=== PATIENT | male | born 1950 | race African-American/Black ===

== ENCOUNTER 2020-10-14 11:25 | Inpatient (IN) | payer OTHER ==
[2020-10-14 11:58] VITALS: BMI 25.7
[2020-10-14] MEDS ORDERED: ONDANSETRON 4 MG/2 ML VIAL IVPUSH ONE (12:56)
[2020-10-14] MEDS ORDERED: LACTATED RINGERS SOLUTION 1000 ML INFUS.BAG IV ONE (12:56)
[2020-10-14] MEDS ORDERED: ONDANSETRON 4 MG/2 ML VIAL ONE (14:03)
[2020-10-14 14:05] LABS: BASO % 0.2 % (0-2.0); HEMATOCRIT 37.1 % (35.4-49); HEMOGLOBIN 12.1 GM/dL (11.7-16.9); LYMPH % 5.8 % (8-40); MCH 27.2 pg (25.7-33.7); MCHC 32.5 g/dl (32.0-35.9); MEAN CELL VOLUME 83.7 fl (80-96); MONO % 3.9 % (3.8-10.2); NEUT % 90.1 % (42.8-82.8); PLATELET COUNT 305 K/MM3 (134-434); RBC 4.43 M/mm3 (4.00-5.60); RDW 16.7 % (11.9-15.9); WHITE BLOOD COUNT 13.9 K/mm3 (4.0-10.0)
[2020-10-14 14:23] LABS: CHLORIDE 97 mmol/L (98-107); POTASSIUM 4.4 mmol/L (3.5-5.1); SODIUM 129 mmol/L (136-145)
[2020-10-14 14:25] LABS: CALCIUM 10.1 mg/dL (8.5-10.1)
[2020-10-14 14:26] LABS: ALBUMIN 3.3 g/dl (3.4-5.0); ANION GAP 11 MMOL/L (8-16); BLOOD UREA NITROGEN 17.5 mg/dL (7-18); CO2 21 mmol/L (21-32); GLUCOSE,RANDOM 123 mg/dL (74-106); LIPASE 57 U/L (73-393); MAGNESIUM 2.1 mg/dL (1.8-2.4)
[2020-10-14 14:29] LABS: CREATININE 1.2 mg/dL (0.55-1.3); SGOT/AST 37 U/L (15-37); SGPT/ALT 48 U/L (13-61)
[2020-10-14 14:30] LABS: BILIRUBIN,TOTAL 0.5 mg/dL (0.2-1); TOT PROT 9.2 g/dl (6.4-8.2)
[2020-10-14 14:32] LABS: ALK PHOS 126 U/L (45-117)
[2020-10-14 15:25] LABS: EPI CELLS 5 /uL (0-25.1); HYALINE CASTS 2 /uL (0-3.1); PH,URINE 5.5 (5.0-8.0); URINE APPEARANCE CLOUDY; URINE BACTERIA >9,000 /uL (0-1359); URINE BILIRUBIN NEGATIVE (NEGATIVE); URINE COLOR YELLOW; URINE GLUCOSE (UA) NEGATIVE (NEGATIVE); URINE KETONE NEGATIVE (NEGATIVE); URINE LEUK ESTERASE 3+ (NEGATIVE); URINE NITRITE NEGATIVE (NEGATIVE); URINE PROTEIN 1+ (NEGATIVE); URINE RBC 50 /uL (0-23.9); URINE UROBILINOGEN 0.2 mg/dL (0.2-1.0); URINE WBC 2085 /uL (0-25.8)
[2020-10-14] MEDS ORDERED: PIPERACILLIN/TAZOB 3.375 GM 3.375 GM in DEXTROSE 5%-WATER - 50 ML IVPB ONE (18:46)
[2020-10-15] MEDS ORDERED: MAG HYDROX/AL HYDROX/SIMETH 30 ML UNIT-DOSE CUP PO PRN (01:26)
[2020-10-15] MEDS ORDERED: SODIUM CHLORIDE 1,000 ML IV SCH (01:30)
[2020-10-15] MEDS: BETHANECHOL CHLORIDE 25 MG TABLET PO SCH ×2 (06:02→13:05)
[2020-10-15] MEDS: INSULIN SLIDING SCALE (NOVOLOG) 1 VIAL SQ SCH ×3 (06:48→16:40)
[2020-10-15] MEDS ORDERED: ACETAMINOPHEN 325 MG TABLET (FP) PO PRN (07:01)
[2020-10-15] MEDS: TAMSULOSIN HCL 0.4 MG CAP PO SCH (10:00)
[2020-10-15] MEDS: MULTIVITAMINS (DAILY MVI) TABLET (FP) PO SCH (10:00)
[2020-10-15] MEDS: CYANOCOBALAMIN 1,000 MCG TABLET (FP) PO SCH (10:00)
[2020-10-15] MEDS: FLUoxetine HCL 20 MG CAPSULE PO SCH (10:00)
[2020-10-15] MEDS: APIXABAN 5 MG TABLET PO SCH (10:00)
[2020-10-15] MEDS ORDERED: PSYLLIUM 5.85 GM PACKET PO SCH (10:00)
[2020-10-15] MEDS: SOLIFENACIN SUCCINATE 5 MG TAB PO SCH (10:00)
[2020-10-15] MEDS: ASCORBIC ACID 500 MG TABLET (FP) PO SCH (10:00)
[2020-10-15] MEDS: ERTAPENEM SODIUM 1 GM in SODIUM CHLORIDE 50 ML IVPB SCH (13:02)
[2020-10-15 15:41] LABS: BASO % 0.5 % (0-2.0); EOS % 0.1 % (0-4.5); HEMATOCRIT 37.9 % (35.4-49); HEMOGLOBIN 12.4 GM/dL (11.7-16.9); LYMPH % 9.2 % (8-40); MCH 27.8 pg (25.7-33.7); MCHC 32.7 g/dl (32.0-35.9); MEAN CELL VOLUME 85.2 fl (80-96); MEAN PLT VOLUME 8.5 fl (7.5-11.1); MONO % 4.6 % (3.8-10.2); NEUT % 85.6 % (42.8-82.8); PLATELET COUNT 287 K/MM3 (134-434); RBC 4.45 M/mm3 (4.00-5.60); RDW 16.3 % (11.9-15.9); WHITE BLOOD COUNT 13.9 K/mm3 (4.0-10.0)
[2020-10-15 15:47] LABS: POTASSIUM 4.2 mmol/L (3.5-5.1)
[2020-10-15 15:49] LABS: CALCIUM 10.5 mg/dL (8.5-10.1)
[2020-10-15 15:50] LABS: ALBUMIN 3.3 g/dl (3.4-5.0); BLOOD UREA NITROGEN 27.4 mg/dL (7-18); MAGNESIUM 2.2 mg/dL (1.8-2.4)
[2020-10-15 15:53] LABS: CREATININE 1.3 mg/dL (0.55-1.3)
[2020-10-15 15:54] LABS: BILIRUBIN,TOTAL 0.2 mg/dL (0.2-1); TOT PROT 8.9 g/dl (6.4-8.2)
[2020-10-15] MEDS: ATORVASTATIN CA 10 MG TABLET (FP) PO SCH (23:00)
[2020-10-15] MEDS: HEPARIN NA (PORCINE) 5,000 UNITS/ML 1ML VIAL SQ SCH (23:04)
[2020-10-16] MEDS: SODIUM CHLORIDE 1,000 ML IV SCH ×2 (00:17→10:06)
[2020-10-16] MEDS: LYTES/YERBA SANTA 60 ML SPRAY MM SCH ×4 (00:48→10:06)
[2020-10-16] MEDS: INSULIN SLIDING SCALE (NOVOLOG) 1 VIAL SQ SCH ×2 (06:08→11:38)
[2020-10-16] MEDS: HEPARIN NA (PORCINE) 5,000 UNITS/ML 1ML VIAL SQ SCH (06:09)
[2020-10-16] MEDS ORDERED: DEXTROSE 50%-WATER - 25 GM/50 ML VIAL IVPUSH ONE (06:36)
[2020-10-16] MEDS ORDERED: DEXTROSE 50%-WATER 25 GM/50 ML DISP.SYRIN ONE (07:14)
[2020-10-16] MEDS: FLUoxetine HCL 20 MG CAPSULE PO SCH (09:46)
[2020-10-16] MEDS: MULTIVITAMINS (DAILY MVI) TABLET (FP) PO SCH (09:46)
[2020-10-16] MEDS: CYANOCOBALAMIN 1,000 MCG TABLET (FP) PO SCH (09:46)
[2020-10-16] MEDS: SOLIFENACIN SUCCINATE 5 MG TAB PO SCH (09:46)
[2020-10-16] MEDS: ASCORBIC ACID 500 MG TABLET (FP) PO SCH (09:46)
[2020-10-16] MEDS: ERTAPENEM SODIUM 1 GM in SODIUM CHLORIDE 50 ML IVPB SCH (10:06)
[2020-10-16 11:07] LABS: BASO % 0.3 % (0-2.0); EOS % 0.2 % (0-4.5); HEMOGLOBIN 11.8 GM/dL (11.7-16.9); LYMPH % 15.9 % (8-40); MCHC 31.2 g/dl (32.0-35.9); MEAN CELL VOLUME 86.5 fl (80-96); MEAN PLT VOLUME 8.5 fl (7.5-11.1); MONO % 6.9 % (3.8-10.2); NEUT % 76.7 % (42.8-82.8); PLATELET COUNT 285 K/MM3 (134-434); RBC 4.39 M/mm3 (4.00-5.60); RDW 16.5 % (11.9-15.9); WHITE BLOOD COUNT 8.2 K/mm3 (4.0-10.0)
[2020-10-16] MEDS ORDERED: PANTOPRAZOLE SODIUM 40 MG in SODIUM CHLORIDE 100 ML IVPB SCH ×2 (11:15→11:25)
[2020-10-16 11:37] LABS: MAGNESIUM 2.4 mg/dL (1.8-2.4)
[2020-10-16 11:41] LABS: PHOSPHOROUS 3.3 mg/dL (2.5-4.9)
[2020-10-16] MEDS ORDERED: PANTOPRAZOLE SODIUM 40 MG VIAL ONE (12:04)
[2020-10-16] MEDS ORDERED: SODIUM CHLORIDE 100 ML IVPB ONE (12:04)
[2020-10-16] MEDS: D5-NS + 40 MEQ KCL - 40 MEQ/1,000 ML INFUS.BAG IV SCH (12:11)
[2020-10-16] MEDS ORDERED: BACITRACIN 15 GM TUBE TOPICAL OINTMENT TP SCH (12:15)
[2020-10-16] MEDS ORDERED: PT OWN MED DRAWER 7, Y5N ONE ×2 (14:20→22:10)
[2020-10-16 14:30] LABS: POTASSIUM 4.1 mmol/L (3.5-5.1)
[2020-10-16] MEDS: BETHANECHOL CHLORIDE 25 MG TABLET PO SCH ×2 (14:30→22:58)
[2020-10-16] MEDS: BACITRACIN 15 GM TUBE TOPICAL OINTMENT TP SCH ×2 (14:30→22:57)
[2020-10-16 14:32] LABS: CALCIUM 10.1 mg/dL (8.5-10.1)
[2020-10-16 14:33] LABS: ALBUMIN 3.1 g/dl (3.4-5.0); BLOOD UREA NITROGEN 30.8 mg/dL (7-18)
[2020-10-16 14:36] LABS: CREATININE 1.3 mg/dL (0.55-1.3)
[2020-10-16 14:37] LABS: BILIRUBIN,TOTAL 0.2 mg/dL (0.2-1); TOT PROT 8.4 g/dl (6.4-8.2)
[2020-10-16] MEDS ORDERED: MEROPENEM 1 GM VIAL (RESTRICTED TO ID) IVPB ONE (17:15)
[2020-10-16] MEDS ORDERED: DEXTROSE 5%-WATER 100 ML IVPB ONE (17:15)
[2020-10-16] MEDS: MEROPENEM 1 GM in DEXTROSE 5%-WATER 100 ML IVPB SCH (17:45)
[2020-10-16] MEDS ORDERED: HEPARIN NA (PORCINE) 5,000 UNITS/ML 1ML VIAL SQ SCH (22:00)
[2020-10-16] MEDS: ATORVASTATIN CA 10 MG TABLET (FP) PO SCH (22:57)
[2020-10-16] MEDS: APIXABAN 5 MG TABLET PO SCH (22:57)
[2020-10-17] MEDS ORDERED: MEROPENEM 1 GM VIAL (RESTRICTED TO ID) IVPB ONE ×3 (02:26→17:21)
[2020-10-17] MEDS ORDERED: DEXTROSE 5%-WATER 100 ML IVPB ONE ×3 (02:26→17:21)
[2020-10-17] MEDS: MEROPENEM 1 GM in DEXTROSE 5%-WATER 100 ML IVPB SCH ×3 (02:45→17:29)
[2020-10-17] MEDS: BETHANECHOL CHLORIDE 25 MG TABLET PO SCH ×3 (06:45→22:03)
[2020-10-17 09:00] LABS: BASO % 0.5 % (0-2.0); EOS % 1.1 % (0-4.5); HEMATOCRIT 37.7 % (35.4-49); HEMOGLOBIN 11.7 GM/dL (11.7-16.9); LYMPH % 23.7 % (8-40); MCH 27.5 pg (25.7-33.7); MCHC 30.9 g/dl (32.0-35.9); MEAN CELL VOLUME 88.9 fl (80-96); MEAN PLT VOLUME 7.7 fl (7.5-11.1); MONO % 6.8 % (3.8-10.2); NEUT % 67.9 % (42.8-82.8); PLATELET COUNT 206 K/MM3 (134-434); RBC 4.24 M/mm3 (4.00-5.60); RDW 16.2 % (11.9-15.9); WHITE BLOOD COUNT 5.4 K/mm3 (4.0-10.0)
[2020-10-17 09:25] LABS: POTASSIUM 4.5 mmol/L (3.5-5.1)
[2020-10-17 09:27] LABS: CALCIUM 9.2 mg/dL (8.5-10.1)
[2020-10-17 09:29] LABS: BLOOD UREA NITROGEN 17.6 mg/dL (7-18)
[2020-10-17 09:31] LABS: CREATININE 0.9 mg/dL (0.55-1.3)
[2020-10-17 09:32] LABS: ALBUMIN 2.6 g/dl (3.4-5.0)
[2020-10-17 09:33] LABS: BILIRUBIN,TOTAL 0.7 mg/dL (0.2-1); TOT PROT 7.6 g/dl (6.4-8.2)
[2020-10-17] MEDS: FLUoxetine HCL 20 MG CAPSULE PO SCH (11:11)
[2020-10-17] MEDS: TAMSULOSIN HCL 0.4 MG CAP PO SCH (11:11)
[2020-10-17] MEDS: SOLIFENACIN SUCCINATE 5 MG TAB PO SCH (11:11)
[2020-10-17] MEDS: APIXABAN 5 MG TABLET PO SCH ×2 (11:12→22:03)
[2020-10-17] MEDS: BACITRACIN 15 GM TUBE TOPICAL OINTMENT TP SCH ×2 (11:12→22:02)
[2020-10-17] MEDS: PANTOPRAZOLE SODIUM 40 MG VIAL IVPUSH SCH (11:13)
[2020-10-17] MEDS: D5-NS + 40 MEQ KCL - 40 MEQ/1,000 ML INFUS.BAG IV SCH (12:01)
[2020-10-17] MEDS ORDERED: PT OWN MED DRAWER 7, Y5N ONE ×2 (13:05→21:36)
[2020-10-17] MEDS: ATORVASTATIN CA 10 MG TABLET (FP) PO SCH (22:03)
[2020-10-18] MEDS ORDERED: MEROPENEM 1 GM VIAL (RESTRICTED TO ID) IVPB ONE ×3 (02:51→16:53)
[2020-10-18] MEDS: MEROPENEM 1 GM in DEXTROSE 5%-WATER 100 ML IVPB SCH ×3 (02:57→17:09)
[2020-10-18] MEDS ORDERED: PT OWN MED DRAWER 7, Y5N ONE (05:59)
[2020-10-18] MEDS: BETHANECHOL CHLORIDE 25 MG TABLET PO SCH ×2 (07:00→14:42)
[2020-10-18 08:25] LABS: BASO % 0.7 % (0-2.0); EOS % 2.1 % (0-4.5); HEMATOCRIT 33.1 % (35.4-49); HEMOGLOBIN 10.8 GM/dL (11.7-16.9); LYMPH % 30.9 % (8-40); MCH 27.8 pg (25.7-33.7); MCHC 32.6 g/dl (32.0-35.9); MEAN CELL VOLUME 85.1 fl (80-96); MEAN PLT VOLUME 8.3 fl (7.5-11.1); MONO % 9.7 % (3.8-10.2); NEUT % 56.6 % (42.8-82.8); PLATELET COUNT 247 K/MM3 (134-434); RBC 3.89 M/mm3 (4.00-5.60); RDW 16.1 % (11.9-15.9); WHITE BLOOD COUNT 5.2 K/mm3 (4.0-10.0)
[2020-10-18 08:51] LABS: POTASSIUM 4.2 mmol/L (3.5-5.1)
[2020-10-18] MEDS ORDERED: DEXTROSE 5%-WATER 100 ML IVPB ONE ×2 (09:27→16:54)
[2020-10-18 09:32] LABS: BLOOD UREA NITROGEN 9.8 mg/dL (7-18); CALCIUM 9.1 mg/dL (8.5-10.1)
[2020-10-18 09:33] LABS: ALBUMIN 2.5 g/dl (3.4-5.0)
[2020-10-18 09:37] LABS: BILIRUBIN,TOTAL 0.4 mg/dL (0.2-1); TOT PROT 7.1 g/dl (6.4-8.2)
[2020-10-18] MEDS: SOLIFENACIN SUCCINATE 5 MG TAB PO SCH (10:13)
[2020-10-18] MEDS: BACITRACIN 15 GM TUBE TOPICAL OINTMENT TP SCH (10:13)
[2020-10-18] MEDS: TAMSULOSIN HCL 0.4 MG CAP PO SCH (10:13)
[2020-10-18] MEDS: FLUoxetine HCL 20 MG CAPSULE PO SCH (10:13)
[2020-10-18] MEDS: PANTOPRAZOLE SODIUM 40 MG VIAL IVPUSH SCH (10:13)
[2020-10-18] MEDS: APIXABAN 5 MG TABLET PO SCH (10:15)
[2020-10-18 13:52] VITALS: BP 101/62; PULSE 82; TEMP 98.5
== END 2020-10-18 19:49 | DRG 389 ==
LOC: JER 11:25 → JERBED 22:34 → J6S 10-15 05:14
PROVIDERS: ADMIT Internal Medicine; ATTEND Family Medicine
PROC: 0D9670Z Drainage of Stomach with Drainage Device, Via Natural or Artificial Opening (ICD-10-PCS; principal; 2020-10-15)
PROC: 0TP5X0Z Removal of Drainage Device from Kidney, External Approach (ICD-10-PCS; 2020-10-16)
PROC: 0T9130Z Drainage of Left Kidney with Drainage Device, Percutaneous Approach (ICD-10-PCS; 2020-10-16)
PROC: BT12ZZZ Fluoroscopy of Left Kidney (ICD-10-PCS; 2020-10-16)
PROC: 02HV33Z Insertion of Infusion Device into Superior Vena Cava, Percutaneous Approach (ICD-10-PCS; 2020-10-16)
PROC: B548ZZA Ultrasonography of Superior Vena Cava, Guidance (ICD-10-PCS; 2020-10-16)
DX: K56.600 Partial intestinal obstruction, unspecified as to cause (principal); E87.1 Hypo-osmolality and hyponatremia; N39.0 Urinary tract infection, site not specified; N40.0 Benign prostatic hyperplasia without lower urinary tract symptoms; E11.22 Type 2 diabetes mellitus with diabetic chronic kidney disease; I12.9 Hypertensive chronic kidney disease with stage 1 through stage 4 chronic kidney disease, or unspecified chronic kidney disease; N18.9 Chronic kidney disease, unspecified; E78.5 Hyperlipidemia, unspecified; Z74.01 Bed confinement status; Z87.891 Personal history of nicotine dependence; Z86.19 Personal history of other infectious and parasitic diseases; Z93.3 Colostomy status; E83.52 Hypercalcemia; E86.1 Hypovolemia; Z86.718 Personal history of other venous thrombosis and embolism; Z79.01 Long term (current) use of anticoagulants
CPT/HCPCS: 36415; 36558; 50435; 71045-TC-FY; 74019-TC-FY; 74177-TC; 75820-TC-FY; 77001-TC-FY; 80053; 81003; 82310; 82550; 82962; 83036; 83605; 83690; 83735; 83970; 84100; 84155; 84165; 84443; 84484; 85025; 87086; 87186; 93005; 93010; 97116-GP; 97162-GP; 99285-25; C1751; C9803; J1644; Q9967; U0003

== ENCOUNTER → 2021-01-15 | Day surgery (SDC) | payer OTHER | END | disposition home or self-care (01) | LOC: JRADIR 11:11 | PROVIDERS: ATTEND Nurse Practitioner Family | PROC: 02PY03Z Removal of Infusion Device from Great Vessel, Open Approach (ICD-10-PCS; principal; 2021-01-15) | DX: Z45.2 Encounter for adjustment and management of vascular access device (principal) | CPT/HCPCS: 36589 ==

== ENCOUNTER 2021-07-14 12:55 | Emergency (ER) | payer OTHER ==
[2021-07-14 13:49] VITALS: BMI 21.9
[2021-07-14 14:16] LABS: BASO % 1.4 % (0-2.0); EOS % 2.4 % (0-4.5); HEMATOCRIT 25.9 % (35.4-49); HEMOGLOBIN 8.5 GM/dL (11.7-16.9); MCH 27.5 pg (25.7-33.7); MCHC 32.7 g/dl (32.0-35.9); MEAN PLT VOLUME 8.5 fl (7.5-11.1); MONO % 11.1 % (3.8-10.2); NEUT % 58.1 % (42.8-82.8); PLATELET COUNT 237 10^3/uL (134-434); RBC 3.08 M/mm3 (4.00-5.60); RDW 16.4 % (11.9-15.9); WHITE BLOOD COUNT 6.1 K/mm3 (4.0-10.0)
[2021-07-14 14:43] LABS: ALBUMIN 2.8 g/dl (3.4-5.0); CALCIUM 8.6 mg/dL (8.5-10.1)
[2021-07-14 14:46] LABS: CREATININE 1.1 mg/dL (0.55-1.3)
[2021-07-14 14:48] LABS: BILIRUBIN,TOTAL 0.1 mg/dL (0.2-1); TOT PROT 7.5 g/dl (6.4-8.2)
[2021-07-15 12:47] VITALS: BP 127/71; PULSE 71; TEMP 98.1
== END 2021-07-15 12:10 | disposition home or self-care (01) ==
LOC: JER 12:55
DX: S30.853A Superficial foreign body of scrotum and testes, initial encounter (principal)
CPT/HCPCS: 36415; 74176-TC; 80053; 85025; 93005; 93010; 99285-25

== ENCOUNTER 2022-03-26 17:07 | Emergency (ER) | payer OTHER ==
[2022-03-26 17:41] VITALS: TEMP 99.2; BMI 28.0
[2022-03-26] MEDS ORDERED: morphine CARPU-JECT 4 MG/1 ML DISP.SYRIN IVPUSH ONE (17:54)
[2022-03-26] MEDS ORDERED: SODIUM CHLORIDE 0.9% 500 ML INFUS.BAG IV ONE (17:54)
[2022-03-26 18:29] VITALS: BP 165/95; PULSE 90
[2022-03-26] MEDS ORDERED: morphine SULFATE 4 MG/ML VIAL ONE (19:19)
[2022-03-26 19:45] LABS: EPI CELLS 2 /uL (0-25.1); HYALINE CASTS 1 /uL (0-3.1); URINE APPEARANCE CLEAR; URINE BACTERIA >9,000 /uL (0-1359); URINE BILIRUBIN NEGATIVE (NEGATIVE); URINE COLOR YELLOW; URINE GLUCOSE (UA) NEGATIVE (NEGATIVE); URINE KETONE NEGATIVE (NEGATIVE); URINE LEUK ESTERASE NEGATIVE (NEGATIVE); URINE NITRITE NEGATIVE (NEGATIVE); URINE PROTEIN 3+ (NEGATIVE); URINE RBC 61 /uL (0-23.9); URINE UROBILINOGEN 0.2 mg/dL (0.2-1.0)
[2022-03-26 19:56] LABS: BASO % 0.3 % (0-2.0); EOS % 0.1 % (0-4.5); HEMATOCRIT 39.4 % (35.4-49); HEMOGLOBIN 12.8 GM/dL (11.7-16.9); LYMPH % 10.1 % (8-40); MCH 28.4 pg (25.7-33.7); MCHC 32.5 g/dl (32.0-35.9); MEAN CELL VOLUME 87.5 fl (80-96); MEAN PLT VOLUME 8.7 fl (7.5-11.1); MONO % 3.3 % (3.8-10.2); NEUT % 86.2 % (42.8-82.8); PLATELET COUNT 238 10^3/uL (134-434); RBC 4.51 M/mm3 (4.00-5.60); WHITE BLOOD COUNT 9.6 K/mm3 (4.0-10.0)
[2022-03-26 19:58] LABS: URINE WBC 184.9 /uL (0-25.8)
[2022-03-26 20:02] LABS: CALCIUM 9.5 mg/dL (8.5-10.1)
[2022-03-26 20:03] LABS: ALBUMIN 3.4 g/dl (3.4-5.0)
[2022-03-26 20:06] LABS: CREATININE 1.2 mg/dL (0.55-1.3)
[2022-03-26 20:07] LABS: TOT PROT 8.6 g/dl (6.4-8.2)
[2022-03-26 20:08] LABS: BILIRUBIN,TOTAL 0.2 mg/dL (0.2-1)
[2022-03-26] MEDS ORDERED: PIPERACILLIN/TAZOB 4.5 GM 4.5 GM in DEXTROSE 5%-WATER 100 ML IVPB ONE (21:31)
[2022-03-26] MEDS ORDERED: PIPERACILLIN/TAZOB 4.5 GM 4.5 GM/100 ML BAG IVPB ONE (21:42)
== END 2022-03-27 02:56 | disposition short-term general hospital (02) ==
LOC: JER 17:07
PROC: 3E033GC Introduction of Other Therapeutic Substance into Peripheral Vein, Percutaneous Approach (ICD-10-PCS; principal; 2022-03-26)
DX: K56.600 Partial intestinal obstruction, unspecified as to cause (principal); K46.9 Unspecified abdominal hernia without obstruction or gangrene
CPT/HCPCS: 36415; 74177-TC; 80053; 81003; 83605; 83690; 84484; 85025; 87040; 87086; 87186; 93005; 93010; 96365; 96375; 99285-25; C9803-CS; Q9967; U0003; U0005

== ENCOUNTER 2022-08-04 10:56 | Inpatient (IN) | payer OTHER ==
[2022-08-04 11:08] VITALS: BMI 26.4
[2022-08-04 12:50] LABS: CHLORIDE 100 mmol/L (98-107); SODIUM 134 mmol/L (136-145)
[2022-08-04 12:51] LABS: BASO % 0.4 % (0-2.0); EOS % 0.6 % (0-4.5); HEMATOCRIT 37.7 % (35.4-49); HEMOGLOBIN 11.8 GM/dL (11.7-16.9); LYMPH % 18.5 % (8-40); MCH 27.8 pg (25.7-33.7); MCHC 31.3 g/dl (32.0-35.9); MEAN CELL VOLUME 88.8 fl (80-96); MEAN PLT VOLUME 9.8 fl (7.5-11.1); MONO % 7.1 % (3.8-10.2); NEUT % 73.4 % (42.8-82.8); PLATELET COUNT 244 10^3/uL (134-434); RBC 4.25 M/mm3 (4.00-5.60); RDW 15.7 % (11.9-15.9); WHITE BLOOD COUNT 7.4 K/mm3 (4.0-10.0)
[2022-08-04 12:52] LABS: ALBUMIN 3.3 g/dl (3.4-5.0); ANION GAP 14 MMOL/L (8-16); CALCIUM 9.3 mg/dL (8.5-10.1); CO2 19 mmol/L (21-32)
[2022-08-04 12:53] LABS: EPI CELLS 4 /uL (0-25.1); HYALINE CASTS 5 /uL (0-3.1); PH,URINE 5.5 (5.0-8.0); URINE APPEARANCE CLOUDY; URINE BACTERIA >9,000 /uL (0-1359); URINE BILIRUBIN NEGATIVE (NEGATIVE); URINE COLOR YELLOW; URINE GLUCOSE (UA) 2+ (NEGATIVE); URINE KETONE 2+ (NEGATIVE); URINE LEUK ESTERASE 1+ (NEGATIVE); URINE NITRITE NEGATIVE (NEGATIVE); URINE PROTEIN 3+ (NEGATIVE); URINE RBC 35 /uL (0-23.9); URINE UROBILINOGEN 0.2 mg/dL (0.2-1.0); URINE WBC 979 /uL (0-25.8)
[2022-08-04 12:55] LABS: CREATININE 1.6 mg/dL (0.55-1.3); SGOT/AST 26 U/L (15-37); SGPT/ALT 34 U/L (13-61)
[2022-08-04 12:57] LABS: BILIRUBIN,TOTAL 0.5 mg/dL (0.2-1)
[2022-08-04 12:58] LABS: TOT PROT 8.1 g/dl (6.4-8.2)
[2022-08-04] MEDS ORDERED: CEFTRIAXONE 1 GM in DEXTROSE 5%-WATER - 100 ML IVPB ONE (12:58)
[2022-08-04 12:59] LABS: ALK PHOS 130 U/L (45-117)
[2022-08-04] MEDS ORDERED: SODIUM CHLORIDE 0.9% 500 ML INFUS.BAG IV ONE ×2 (13:08→13:46)
[2022-08-04] MEDS ORDERED: CEFTRIAXONE 1 GM/50 ML BAG ONE (13:29)
[2022-08-04 13:32] LABS: VENOUS BASE EXCESS -9.9 mmol/L (-2-2); VENOUS O2 SATURATION 18.4 % (70-80); VENOUS PCO2 38.3 mmHg (38-52); VENOUS PH 7.254 (7.310-7.410)
[2022-08-04 13:59] LABS: INR 1.54 (0.83-1.09); PROTHROMBIN TIME (PATIENT) 17.8 SEC (9.7-13.0)
[2022-08-04 14:02] LABS: ACTIVATED PTT 42.6 SECONDS (25.2-36.5)
[2022-08-04 14:05] LABS: GLUCOSE,RANDOM 472 mg/dL (74-106)
[2022-08-04 18:10] LABS: BLOOD UREA NITROGEN 22.9 mg/dL (7-18); CALCIUM 8.8 mg/dL (8.5-10.1)
[2022-08-04 18:14] LABS: CREATININE 1.4 mg/dL (0.55-1.3)
[2022-08-04] MEDS ORDERED: ACETAMINOPHEN 325 MG TABLET (FP) PO PRN (20:32)
[2022-08-04] MEDS ORDERED: DOCUSATE SODIUM 100 MG CAPSULE (FP) PO PRN (20:32)
[2022-08-04] MEDS: INSULIN SLIDING SCALE (NOVOLOG) 1 VIAL SQ SCH (21:41)
[2022-08-04] MEDS: SODIUM CHLORIDE 1,000 ML IV SCH (21:51)
[2022-08-04 23:22] LABS: MAGNESIUM 1.9 mg/dL (1.8-2.4)
[2022-08-04] MEDS ORDERED: APIXABAN 5 MG TABLET PO SCH (23:45)
[2022-08-05] MEDS: INSULIN SLIDING SCALE (NOVOLOG) 1 VIAL SQ SCH ×6 (00:14→22:03)
[2022-08-05] MEDS: BETHANECHOL CHLORIDE 25 MG TABLET PO SCH ×4 (00:59→22:01)
[2022-08-05 02:01] VITALS: RESP 18
[2022-08-05] MEDS ORDERED: PIPERACILLIN/TAZOB 3.375 GM 3.375 GM in DEXTROSE 5%-WATER - 50 ML IVPB SCH ×2 (08:00→10:00)
[2022-08-05] MEDS ORDERED: MAG HYDROX/AL HYDROX/SIMETH 30 ML UNIT-DOSE CUP PO PRN (09:24)
[2022-08-05] MEDS: METOCLOPRAMIDE HCL 10 MG TABLET (FP) PO SCH ×2 (09:43→21:59)
[2022-08-05] MEDS: FLUoxetine HCL 10 MG CAPSULE PO SCH (09:44)
[2022-08-05] MEDS: CYANOCOBALAMIN 1,000 MCG TABLET (FP) PO SCH (09:44)
[2022-08-05] MEDS: TAMSULOSIN HCL 0.4 MG CAP PO SCH (09:44)
[2022-08-05] MEDS: PANTOPRAZOLE 40 MG TABLET PO SCH (09:44)
[2022-08-05] MEDS: PIPERACILLIN/TAZOB 3.375 GM 3.375 GM in DEXTROSE 5%-WATER - 50 ML IVPB SCH ×2 (09:44→17:22)
[2022-08-05] MEDS: ASCORBIC ACID 500 MG TABLET (FP) PO SCH (09:44)
[2022-08-05] MEDS: OXYBUTYNIN CHLORIDE 5 MG TABLET PO SCH ×2 (09:45→22:01)
[2022-08-05] MEDS ORDERED: CEFTRIAXONE 1 GM in DEXTROSE 5%-WATER - 50 ML IVPB SCH (10:00)
[2022-08-05 12:52] LABS: BASO % 0.6 % (0-2.0); EOS % 0.8 % (0-4.5); HEMATOCRIT 34.7 % (35.4-49); HEMOGLOBIN 11.3 GM/dL (11.7-16.9); LYMPH % 16.6 % (8-40); MCH 28.8 pg (25.7-33.7); MCHC 32.5 g/dl (32.0-35.9); MEAN CELL VOLUME 88.5 fl (80-96); MEAN PLT VOLUME 9.9 fl (7.5-11.1); PLATELET COUNT 175 10^3/uL (134-434); RBC 3.92 M/mm3 (4.00-5.60); RDW 15.5 % (11.9-15.9); WHITE BLOOD COUNT 7.4 K/mm3 (4.0-10.0)
[2022-08-05 13:03] LABS: CALCIUM 8.7 mg/dL (8.5-10.1)
[2022-08-05 13:04] LABS: BLOOD UREA NITROGEN 18.7 mg/dL (7-18)
[2022-08-05 13:07] LABS: CREATININE 1.2 mg/dL (0.55-1.3)
[2022-08-05] MEDS: FLUOCINONIDE 0.05% CREAM (15 GM TUBE) TP SCH ×2 (14:44→22:05)
[2022-08-05] MEDS: ARTIFICIAL TEARS (POLYVINYL ALCOHOL) OPTH DROPS OD SCH (15:58)
[2022-08-05] MEDS: ATORVASTATIN CA 10 MG TABLET (FP) PO SCH (22:01)
[2022-08-06] MEDS: ARTIFICIAL TEARS (POLYVINYL ALCOHOL) OPTH DROPS OD SCH ×3 (00:19→21:58)
[2022-08-06] MEDS: SODIUM CHLORIDE 1,000 ML IV SCH (00:19)
[2022-08-06] MEDS: INSULIN SLIDING SCALE (NOVOLOG) 1 VIAL SQ SCH ×6 (02:06→21:59)
[2022-08-06] MEDS: PIPERACILLIN/TAZOB 3.375 GM 3.375 GM in DEXTROSE 5%-WATER - 50 ML IVPB SCH (06:44)
[2022-08-06] MEDS: BETHANECHOL CHLORIDE 25 MG TABLET PO SCH ×3 (06:54→21:57)
[2022-08-06] MEDS: TAMSULOSIN HCL 0.4 MG CAP PO SCH (08:48)
[2022-08-06] MEDS: CYANOCOBALAMIN 1,000 MCG TABLET (FP) PO SCH (11:15)
[2022-08-06] MEDS: METOCLOPRAMIDE HCL 10 MG TABLET (FP) PO SCH ×2 (11:15→21:57)
[2022-08-06] MEDS: FLUoxetine HCL 10 MG CAPSULE PO SCH (11:15)
[2022-08-06] MEDS: ASCORBIC ACID 500 MG TABLET (FP) PO SCH (11:16)
[2022-08-06] MEDS: OXYBUTYNIN CHLORIDE 5 MG TABLET PO SCH ×2 (11:16→21:56)
[2022-08-06] MEDS: CEFUROXIME AXETIL 500 MG TABLET PO SCH ×2 (11:16→21:55)
[2022-08-06] MEDS: PANTOPRAZOLE 40 MG TABLET PO SCH (11:16)
[2022-08-06] MEDS: FLUOCINONIDE 0.05% CREAM (15 GM TUBE) TP SCH ×2 (11:59→21:58)
[2022-08-06 12:11] LABS: BASO % 0.7 % (0-2.0); EOS % 1.1 % (0-4.5); HEMATOCRIT 38.1 % (35.4-49); HEMOGLOBIN 11.9 GM/dL (11.7-16.9); LYMPH % 20.8 % (8-40); MCH 27.5 pg (25.7-33.7); MCHC 31.4 g/dl (32.0-35.9); MEAN CELL VOLUME 87.7 fl (80-96); MEAN PLT VOLUME 9.3 fl (7.5-11.1); MONO % 8.8 % (3.8-10.2); NEUT % 68.6 % (42.8-82.8); PLATELET COUNT 202 10^3/uL (134-434); RBC 4.34 M/mm3 (4.00-5.60); RDW 15.8 % (11.9-15.9); WHITE BLOOD COUNT 6.2 K/mm3 (4.0-10.0)
[2022-08-06 12:39] LABS: BLOOD UREA NITROGEN 16.6 mg/dL (7-18); CALCIUM 9.1 mg/dL (8.5-10.1)
[2022-08-06 12:43] LABS: CREATININE 1.3 mg/dL (0.55-1.3)
[2022-08-06] MEDS: APIXABAN 5 MG TABLET PO SCH (21:56)
[2022-08-06] MEDS: ATORVASTATIN CA 10 MG TABLET (FP) PO SCH (21:56)
[2022-08-06] MEDS ORDERED: INSULIN (LEVEMIR) 100 UNITS/ML UNITS SQ SCH (22:00)
[2022-08-07] MEDS: INSULIN SLIDING SCALE (NOVOLOG) 1 VIAL SQ SCH ×3 (00:51→09:38)
[2022-08-07] MEDS: BETHANECHOL CHLORIDE 25 MG TABLET PO SCH ×2 (06:04→14:17)
[2022-08-07 07:31] VITALS: PULSE 66; TEMP 98.2
[2022-08-07 09:34] VITALS: BP 130/74
[2022-08-07] MEDS: TAMSULOSIN HCL 0.4 MG CAP PO SCH (09:34)
[2022-08-07] MEDS: CEFUROXIME AXETIL 500 MG TABLET PO SCH (09:34)
[2022-08-07] MEDS: FLUoxetine HCL 10 MG CAPSULE PO SCH (09:34)
[2022-08-07] MEDS: ASCORBIC ACID 500 MG TABLET (FP) PO SCH (09:34)
[2022-08-07] MEDS: APIXABAN 5 MG TABLET PO SCH (09:35)
[2022-08-07] MEDS: PANTOPRAZOLE 40 MG TABLET PO SCH (09:35)
[2022-08-07] MEDS: METOCLOPRAMIDE HCL 10 MG TABLET (FP) PO SCH (09:35)
[2022-08-07] MEDS: CYANOCOBALAMIN 1,000 MCG TABLET (FP) PO SCH (09:35)
[2022-08-07] MEDS: OXYBUTYNIN CHLORIDE 5 MG TABLET PO SCH (09:35)
[2022-08-07] MEDS: FLUOCINONIDE 0.05% CREAM (15 GM TUBE) TP SCH (09:36)
[2022-08-07] MEDS: ARTIFICIAL TEARS (POLYVINYL ALCOHOL) OPTH DROPS OD SCH (09:36)
[2022-08-07 10:01] LABS: BASO % 0.7 % (0-2.0); EOS % 1.5 % (0-4.5); HEMATOCRIT 33.7 % (35.4-49); LYMPH % 23.7 % (8-40); MCH 28.3 pg (25.7-33.7); MCHC 32.6 g/dl (32.0-35.9); MEAN CELL VOLUME 86.8 fl (80-96); MEAN PLT VOLUME 9.8 fl (7.5-11.1); MONO % 10.2 % (3.8-10.2); NEUT % 63.9 % (42.8-82.8); PLATELET COUNT 212 10^3/uL (134-434); RBC 3.89 M/mm3 (4.00-5.60); WHITE BLOOD COUNT 5.3 K/mm3 (4.0-10.0)
[2022-08-07 10:30] LABS: BLOOD UREA NITROGEN 15.4 mg/dL (7-18); CALCIUM 8.9 mg/dL (8.5-10.1)
[2022-08-07 10:33] LABS: CREATININE 1.3 mg/dL (0.55-1.3)
[2022-08-07] MEDS ORDERED: INSULIN SLIDING SCALE (NOVOLOG) 1 VIAL SQ SCH (11:00)
== END 2022-08-07 14:01 | disposition home or self-care (01) | DRG 690 ==
LOC: JER 10:56 → JERBED 19:44 → J5S 08-05 00:09
PROVIDERS: ADMIT Internal Medicine; ATTEND Internal Medicine
DX: N39.0 Urinary tract infection, site not specified (principal); K62.5 Hemorrhage of anus and rectum; N17.9 Acute kidney failure, unspecified; E11.65 Type 2 diabetes mellitus with hyperglycemia; I10 Essential (primary) hypertension; E78.5 Hyperlipidemia, unspecified; N40.0 Benign prostatic hyperplasia without lower urinary tract symptoms; Z79.84 Long term (current) use of oral hypoglycemic drugs; Z86.16 Personal history of COVID-19; J44.9 Chronic obstructive pulmonary disease, unspecified; Z86.718 Personal history of other venous thrombosis and embolism; Z85.46 Personal history of malignant neoplasm of prostate; N32.81 Overactive bladder; D51.9 Vitamin B12 deficiency anemia, unspecified
CPT/HCPCS: 0241U-QW; 36415; 71045-TC-FY; 80048; 80053; 81003; 82010; 82272; 82803; 82962; 83036; 83735; 84100; 84484; 85025; 85610; 85730; 86850; 86900; 86901; 87086; 87186; 93005; 93010; 99285-25

== ENCOUNTER 2023-07-29 07:40 | Day surgery (SDC) | payer OTHER ==
[2023-07-23 15:35] VITALS: BMI 28.7
[2023-07-29 10:13] VITALS: RESP 16; TEMP 97.8
[2023-07-29 10:47] VITALS: BP 97/63; PULSE 75
== END 2023-07-29 11:20 | disposition home or self-care (01) ==
LOC: FASU-ENDO 07:40
PROVIDERS: ATTEND Internal Medicine Gastroenterology
PROC: 0DBP8ZX Excision of Rectum, Via Natural or Artificial Opening Endoscopic, Diagnostic (ICD-10-PCS; principal; 2023-07-29 09:41)
DX: Z12.11 Encounter for screening for malignant neoplasm of colon (principal); K64.1 Second degree hemorrhoids
CPT/HCPCS: 82962; 88305-TC

== ENCOUNTER 2023-09-12 05:34 | Emergency (ER) | payer OTHER ==
[2023-09-12 05:42] VITALS: RESP 18; BMI 23.8
[2023-09-12] MEDS ORDERED: LIDOCAINE 4% PATCH TP ONE ×2 (05:57→08:01)
[2023-09-12] MEDS ORDERED: ACETAMINOPHEN 500 MG TABLET (FP) PO ONE (05:57)
[2023-09-12] MEDS ORDERED: ACETAMINOPHEN 325 MG TABLET (FP) ONE (06:16)
[2023-09-12 06:32] LABS: BASO % 0.4 % (0-2.0); EOS % 0.4 % (0-4.5); HEMOGLOBIN 10.8 GM/dL (11.7-16.9); LYMPH % 12.7 % (8-40); MCH 28.5 pg (25.7-33.7); MCHC 31.7 g/dl (32.0-35.9); MEAN CELL VOLUME 89.9 fl (80-96); MEAN PLT VOLUME 8.8 fl (7.5-11.1); MONO % 12.7 % (3.8-10.2); NEUT % 73.8 % (42.8-82.8); PLATELET COUNT 193 10^3/uL (134-434); RBC 3.78 M/mm3 (4.00-5.60); RDW 14.4 % (11.9-15.9); WHITE BLOOD COUNT 6.3 K/mm3 (4.0-10.0)
[2023-09-12 07:01] LABS: POTASSIUM 4.3 mmol/L (3.5-5.1)
[2023-09-12 07:04] LABS: ALBUMIN 3.4 g/dl (3.4-5.0)
[2023-09-12 07:07] LABS: CREATININE 1.1 mg/dL (0.55-1.3)
[2023-09-12 07:08] LABS: TOT PROT 7.3 g/dl (6.4-8.2)
[2023-09-12 07:09] LABS: BILIRUBIN,TOTAL 0.2 mg/dL (0.2-1)
[2023-09-12 08:01] LABS: EPI CELLS 28 /uL (0-25.1); HYALINE CASTS 0 /uL (0-3.1); URINE APPEARANCE CLEAR; URINE BACTERIA 51 /uL (0-1359); URINE BILIRUBIN NEGATIVE (NEGATIVE); URINE COLOR YELLOW; URINE GLUCOSE (UA) NEGATIVE (NEGATIVE); URINE KETONE NEGATIVE (NEGATIVE); URINE LEUK ESTERASE NEGATIVE (NEGATIVE); URINE NITRITE NEGATIVE (NEGATIVE); URINE PROTEIN 3+ (NEGATIVE); URINE RBC 10 /uL (0-23.9); URINE UROBILINOGEN 0.2 mg/dL (0.2-1.0); URINE WBC 18 /uL (0-25.8)
[2023-09-12 09:48] VITALS: BP 137/60; PULSE 82; TEMP 98.8
[2023-09-12] MEDS ORDERED: LIDOCAINE PATCH REMOVAL MC SCH (22:00)
== END 2023-09-12 12:20 | disposition home or self-care (01) ==
LOC: JER 05:34
DX: M54.50 Low back pain, unspecified (principal)
CPT/HCPCS: 36415; 72131-TC; 80053; 81003; 85025; 87086; 99284-25

== ENCOUNTER 2023-12-31 08:23 | Day surgery (SDC) | payer OTHER ==
[2023-12-29 15:28] VITALS: BMI 28.7
[2023-12-31] MEDS ORDERED: LIDOCAINE HCL/PF 2% SDV 5ML VIAL ONE (10:03)
[2023-12-31] MEDS ORDERED: PROPOFOL 40 ML ONE (10:04)
[2023-12-31 10:59] VITALS: TEMP 97
[2023-12-31 11:25] VITALS: RESP 18
[2023-12-31 11:27] VITALS: BP 128/66; PULSE 75
== END 2023-12-31 12:33 ==
LOC: FASU-ENDO 08:23
PROVIDERS: ATTEND Internal Medicine Gastroenterology
PROC: 0DBP8ZX Excision of Rectum, Via Natural or Artificial Opening Endoscopic, Diagnostic (ICD-10-PCS; principal; 2023-12-31 10:31)
DX: K62.5 Hemorrhage of anus and rectum (principal); C20 Malignant neoplasm of rectum
CPT/HCPCS: 82962

== ENCOUNTER 2024-03-29 15:05 | Inpatient (IN) | payer OTHER ==
[2024-03-29 15:20] VITALS: BMI 25.4
[2024-03-29 17:09] LABS: BASO % 0.7 % (0-2.0); EOS % 2.6 % (0-4.5); HEMATOCRIT 35.4 % (35.4-49); HEMOGLOBIN 11.8 GM/dL (11.7-16.9); LYMPH % 34.5 % (8-40); MCH 28.7 pg (25.7-33.7); MCHC 33.3 g/dl (32.0-35.9); MEAN CELL VOLUME 86.3 fl (80-96); MEAN PLT VOLUME 8.4 fl (7.5-11.1); MONO % 6.4 % (3.8-10.2); NEUT % 55.8 % (42.8-82.8); PLATELET COUNT 200 10^3/uL (134-434); RDW 15.7 % (11.9-15.9); WHITE BLOOD COUNT 6.2 K/mm3 (4.0-10.0)
[2024-03-29 17:16] LABS: INR 1.01 (0.83-1.09); PROTHROMBIN TIME (PATIENT) 11.4 SEC (9.7-13.0)
[2024-03-29 17:18] LABS: ACTIVATED PTT 36.2 SECONDS (25.2-36.5)
[2024-03-29 17:27] LABS: POTASSIUM 4.3 mmol/L (3.5-5.1)
[2024-03-29 17:33] LABS: ALBUMIN 3.6 g/dl (3.4-5.0); BLOOD UREA NITROGEN 12.4 mg/dL (7-18)
[2024-03-29 17:36] LABS: CREATININE 1.3 mg/dL (0.55-1.3)
[2024-03-29 17:37] LABS: BILIRUBIN,TOTAL 0.3 mg/dL (0.2-1)
[2024-03-29 17:38] LABS: TOT PROT 7.9 g/dl (6.4-8.2)
[2024-03-29] MEDS: INSULIN ASPART SLIDING SCALE (NOVOLOG) 1 VIAL SQ SCH (23:12)
[2024-03-29 23:15] LABS: EPI CELLS >36 /uL (0-25.1); HYALINE CASTS 10 /uL (0-3.1); URINE APPEARANCE TURBID; URINE BACTERIA 142 /uL (0-1359); URINE BILIRUBIN NEGATIVE (NEGATIVE); URINE COLOR YELLOW; URINE GLUCOSE (UA) NEGATIVE (NEGATIVE); URINE KETONE NEGATIVE (NEGATIVE); URINE LEUK ESTERASE NEGATIVE (NEGATIVE); URINE NITRITE NEGATIVE (NEGATIVE); URINE PROTEIN 1+ (NEGATIVE); URINE RBC 6 /uL (0-23.9); URINE UROBILINOGEN 0.2 mg/dL (0.2-1.0)
[2024-03-29 23:34] LABS: URINE WBC 70.1 /uL (0-25.8)
[2024-03-30] MEDS: LIDOCAINE PATCH REMOVAL MC SCH (00:50)
[2024-03-30] MEDS: PANTOPRAZOLE 40 MG TABLET PO SCH (06:08)
[2024-03-30] MEDS: TAMSULOSIN HCL 0.4 MG CAP PO SCH (08:57)
[2024-03-30 09:15] LABS: HEMATOCRIT 36.5 % (35.4-49); HEMOGLOBIN 11.7 GM/dL (11.7-16.9); MCH 28.2 pg (25.7-33.7); MCHC 32.2 g/dl (32.0-35.9); MEAN CELL VOLUME 87.7 fl (80-96); MEAN PLT VOLUME 9.2 fl (7.5-11.1); PLATELET COUNT 161 10^3/uL (134-434); RBC 4.16 M/mm3 (4.00-5.60); RDW 15.4 % (11.9-15.9); WHITE BLOOD COUNT 4.4 K/mm3 (4.0-10.0)
[2024-03-30 09:37] LABS: POTASSIUM 4.1 mmol/L (3.5-5.1)
[2024-03-30 09:46] LABS: BLOOD UREA NITROGEN 12.8 mg/dL (7-18); CALCIUM 9.3 mg/dL (8.5-10.1); MAGNESIUM 1.7 mg/dL (1.8-2.4)
[2024-03-30 09:48] LABS: ALBUMIN 3.1 g/dl (3.4-5.0); CREATININE 1.1 mg/dL (0.55-1.3)
[2024-03-30 09:49] LABS: BILIRUBIN,TOTAL 0.4 mg/dL (0.2-1)
[2024-03-30 09:51] LABS: PHOSPHOROUS 3.1 mg/dL (2.5-4.9)
[2024-03-30 09:52] LABS: TOT PROT 6.9 g/dl (6.4-8.2)
[2024-03-30] MEDS: FERROUS SO4 325 MG TABLET (FP) PO SCH (09:56)
[2024-03-30] MEDS: ASCORBIC ACID 500 MG TABLET (FP) PO SCH (09:56)
[2024-03-30] MEDS: MULTIVITAMINS (DAILY MVI) TABLET (FP) PO SCH (09:56)
[2024-03-30] MEDS: LIDOCAINE 5% TOPICAL PATCH TP SCH (09:57)
[2024-03-30] MEDS ORDERED: PATIENT'S OWN MEDICATION (NON-FORMULARY) (Sofosbuvir/Velpatasvir [Epclusa 400 Mg-100 Mg Ta PO SCH (10:00)
[2024-03-30] MEDS ORDERED: metFORMIN HCL 500 MG TABLET (FP) PO SCH (10:00)
[2024-03-30] MEDS ORDERED: PATIENT'S OWN MEDICATION (NON-FORMULARY) (Olopatadine Hcl [Olopatadine Hcl] 2.5 ML Drops) OU SCH (10:00)
[2024-03-30] MEDS: ARTIFICIAL TEARS OPHTHALMIC DROPS OU SCH (13:16)
[2024-03-30] MEDS: CYANOCOBALAMIN 1,000 MCG TABLET (FP) PO SCH (13:16)
[2024-03-30] MEDS: ATORVASTATIN CA 10 MG TABLET (FP) PO SCH (21:08)
[2024-03-30] MEDS: LATANOPROST 0.005% OPHTH SOLN 2.5ML BOTTLE OU SCH (22:43)
[2024-03-31 08:12] LABS: EOS % 3.8 % (0-4.5); HEMATOCRIT 34.1 % (35.4-49); HEMOGLOBIN 11.2 GM/dL (11.7-16.9); LYMPH % 31.2 % (8-40); MCH 28.4 pg (25.7-33.7); MCHC 32.7 g/dl (32.0-35.9); MEAN CELL VOLUME 86.9 fl (80-96); MEAN PLT VOLUME 9.3 fl (7.5-11.1); MONO % 8.4 % (3.8-10.2); NEUT % 55.6 % (42.8-82.8); PLATELET COUNT 190 10^3/uL (134-434); RBC 3.93 M/mm3 (4.00-5.60); RDW 15.2 % (11.9-15.9); WHITE BLOOD COUNT 5.3 K/mm3 (4.0-10.0)
[2024-03-31 08:19] LABS: POTASSIUM 4.2 mmol/L (3.5-5.1)
[2024-03-31 08:26] LABS: CALCIUM 9.1 mg/dL (8.5-10.1)
[2024-03-31 08:27] LABS: ALBUMIN 3.2 g/dl (3.4-5.0); BLOOD UREA NITROGEN 15.6 mg/dL (7-18); CALCIUM 9.1 mg/dL (8.5-10.1)
[2024-03-31 08:28] LABS: BLOOD UREA NITROGEN 15.7 mg/dL (7-18)
[2024-03-31 08:30] LABS: CREATININE 1.1 mg/dL (0.55-1.3)
[2024-03-31 08:31] LABS: CREATININE 1.1 mg/dL (0.55-1.3)
[2024-03-31 08:32] LABS: BILIRUBIN,TOTAL 0.4 mg/dL (0.2-1)
[2024-03-31] MEDS: POLYETHYLENE GLYCOL (HEALTHYLAX) 3350 17 GM PACKET PO SCH (10:49)
[2024-03-31] MEDS: IRON SUCROSE INJECTION 200 MG in SODIUM CHLORIDE 100 ML IVPB ONE (14:07)
[2024-04-01 09:02] LABS: BASO % 0.9 % (0-2.0); EOS % 2.9 % (0-4.5); HEMOGLOBIN 11.2 GM/dL (11.7-16.9); LYMPH % 26.3 % (8-40); MCH 28.8 pg (25.7-33.7); MEAN CELL VOLUME 87.1 fl (80-96); MEAN PLT VOLUME 9.2 fl (7.5-11.1); MONO % 7.7 % (3.8-10.2); NEUT % 62.2 % (42.8-82.8); PLATELET COUNT 188 10^3/uL (134-434); RDW 15.7 % (11.9-15.9); WHITE BLOOD COUNT 6.3 K/mm3 (4.0-10.0)
[2024-04-01 09:58] LABS: POTASSIUM 3.8 mmol/L (3.5-5.1)
[2024-04-01 10:09] LABS: ALBUMIN 3.2 g/dl (3.4-5.0); BLOOD UREA NITROGEN 15.3 mg/dL (7-18); CALCIUM 9.5 mg/dL (8.5-10.1)
[2024-04-01 10:12] LABS: CREATININE 1.1 mg/dL (0.55-1.3)
[2024-04-01 10:14] LABS: BILIRUBIN,TOTAL 0.3 mg/dL (0.2-1)
[2024-04-01 10:37] VITALS: TEMP 98.1
[2024-04-01 14:23] VITALS: BP 104/61; PULSE 73; RESP 18
[2024-04-05] MEDS ORDERED: ERGOCALCIFEROL (VIT D2) 50,000 UNIT (1.25 MG) CAPSULE PO SCH (10:00)
== END 2024-04-01 16:36 | DRG 300 ==
LOC: JER 15:05 → JERBED 22:05 → J6S 03-30 00:39
PROVIDERS: ADMIT Student in an Organized Health Care Education/Training Program; ATTEND Internal Medicine
PROC: 06H03DZ Insertion of Intraluminal Device into Inferior Vena Cava, Percutaneous Approach (ICD-10-PCS; principal; 2024-03-31)
DX: I82.412 Acute embolism and thrombosis of left femoral vein (principal); C20 Malignant neoplasm of rectum; K62.5 Hemorrhage of anus and rectum; B19.20 Unspecified viral hepatitis C without hepatic coma; E11.9 Type 2 diabetes mellitus without complications; N18.9 Chronic kidney disease, unspecified; Z21 Asymptomatic human immunodeficiency virus [HIV] infection status; R76.8 Other specified abnormal immunological findings in serum; E78.5 Hyperlipidemia, unspecified; I10 Essential (primary) hypertension
CPT/HCPCS: 36415; 37191; 80048; 80053; 81003; 82105; 82378; 82728; 82962; 83540; 83550; 83735; 84100; 84484; 85025; 85027; 85610; 85730; 86704; 86705; 86707; 86803; 86850; 86900; 86901; 87086; 87340; 87350; 87517; 87522; 87635; 93005; 93010; 93971-TC; 99285-25; J1756

== ENCOUNTER 2024-06-28 08:07 | Inpatient (IN) | payer OTHER ==
[2024-06-28 10:01] LABS: BASO % 0.2 % (0-2.0); EOS % 1.3 % (0-4.5); HEMATOCRIT 31.9 % (35.4-49); HEMOGLOBIN 10.8 GM/dL (11.7-16.9); LYMPH % 8.2 % (8-40); MCH 29.1 pg (25.7-33.7); MCHC 33.8 g/dl (32.0-35.9); MEAN CELL VOLUME 86.2 fl (80-96); MEAN PLT VOLUME 7.1 fl (7.5-11.1); MONO % 9.4 % (3.8-10.2); NEUT % 80.9 % (42.8-82.8); PLATELET COUNT 240 10^3/uL (134-434); RDW 14.7 % (11.9-15.9); WHITE BLOOD COUNT 3.7 K/mm3 (4.0-10.0)
[2024-06-28 10:07] LABS: INR 1.35 (0.83-1.09); PROTHROMBIN TIME (PATIENT) 15.1 SEC (9.7-13.0)
[2024-06-28 10:10] LABS: ACTIVATED PTT 36.9 SECONDS (25.2-36.5)
[2024-06-28 10:24] LABS: POTASSIUM 3.4 mmol/L (3.5-5.1)
[2024-06-28 10:26] LABS: ALBUMIN 3.8 g/dl (3.4-5.0); BLOOD UREA NITROGEN 8.7 mg/dL (7-18); CALCIUM 9.9 mg/dL (8.5-10.1); MAGNESIUM 1.9 mg/dL (1.8-2.4)
[2024-06-28 10:29] LABS: CREATININE 1.3 mg/dL (0.55-1.3)
[2024-06-28 10:30] LABS: PHOSPHOROUS 2.4 mg/dL (2.5-4.9)
[2024-06-28 10:31] LABS: BILIRUBIN,TOTAL 0.5 mg/dL (0.2-1); TOT PROT 8.6 g/dl (6.4-8.2)
[2024-06-28] MEDS: LACTATED RINGERS SOLUTION 1,000 ML/1,000 ML INFUS.BAG IV SCH (16:10)
[2024-06-28 22:54] VITALS: BMI 23.3
[2024-06-28] MEDS: ATORVASTATIN CA 10 MG TABLET (FP) PO SCH (23:06)
[2024-06-28] MEDS: HEPARIN NA (PORCINE) 5,000 UNITS/ML 1ML VIAL SQ SCH (23:06)
[2024-06-28] MEDS: ASCORBIC ACID 500 MG TABLET (FP) PO SCH (23:06)
[2024-06-29] MEDS: TAMSULOSIN HCL 0.4 MG CAP PO SCH (09:51)
[2024-06-29] MEDS: MULTIVITAMINS (DAILY MVI) TABLET (FP) PO SCH (09:55)
[2024-06-29] MEDS: PANTOPRAZOLE 40 MG TABLET PO SCH (09:55)
[2024-06-29] MEDS: CYANOCOBALAMIN 1,000 MCG TABLET (FP) PO SCH (09:55)
[2024-06-29] MEDS: FERROUS SO4 325 MG TABLET (FP) PO SCH (09:55)
[2024-06-29 10:45] LABS: BASO % 0.1 % (0-2.0); EOS % 1.4 % (0-4.5); HEMATOCRIT 30.4 % (35.4-49); HEMOGLOBIN 10.2 GM/dL (11.7-16.9); LYMPH % 5.9 % (8-40); MCH 28.7 pg (25.7-33.7); MCHC 33.4 g/dl (32.0-35.9); MEAN CELL VOLUME 85.8 fl (80-96); MEAN PLT VOLUME 7.1 fl (7.5-11.1); MONO % 13.4 % (3.8-10.2); NEUT % 79.2 % (42.8-82.8); PLATELET COUNT 223 10^3/uL (134-434); RBC 3.55 M/mm3 (4.00-5.60); RDW 15.3 % (11.9-15.9); WHITE BLOOD COUNT 3.7 K/mm3 (4.0-10.0)
[2024-06-29 11:09] LABS: POTASSIUM 3.2 mmol/L (3.5-5.1)
[2024-06-29 11:11] LABS: BLOOD UREA NITROGEN 7.7 mg/dL (7-18); CALCIUM 9.4 mg/dL (8.5-10.1)
[2024-06-29 11:14] LABS: CREATININE 1.2 mg/dL (0.55-1.3)
[2024-06-29] MEDS: KCL 10 MEQ IVPB 10 MEQ/100 ML INFUS.BAG IVPB SCH (11:53)
[2024-06-29] MEDS: ENTECAVIR 0.5 MG TABLET PO SCH (12:01)
[2024-06-29] MEDS: ZINC OXIDE/PANTHENOL/VITAMIN E 56 GM TUBE TP PRN (15:25)
[2024-06-29 15:38] LABS: ERYTHROCYTE SEDIMENTATION RATE 62 mm/hr (0-20)
[2024-06-30 10:11] LABS: BASO % 0.3 % (0-2.0); EOS % 2.5 % (0-4.5); HEMATOCRIT 29.8 % (35.4-49); HEMOGLOBIN 10.1 GM/dL (11.7-16.9); MCH 29.1 pg (25.7-33.7); MCHC 33.8 g/dl (32.0-35.9); MEAN CELL VOLUME 86.1 fl (80-96); MEAN PLT VOLUME 7.4 fl (7.5-11.1); MONO % 15.3 % (3.8-10.2); NEUT % 74.9 % (42.8-82.8); PLATELET COUNT 226 10^3/uL (134-434); RBC 3.46 M/mm3 (4.00-5.60); RDW 15.1 % (11.9-15.9); WHITE BLOOD COUNT 3.8 K/mm3 (4.0-10.0)
[2024-06-30 10:31] LABS: POTASSIUM 3.4 mmol/L (3.5-5.1)
[2024-06-30 10:35] LABS: BLOOD UREA NITROGEN 7.2 mg/dL (7-18); CALCIUM 9.4 mg/dL (8.5-10.1)
[2024-06-30 10:38] LABS: CREATININE 1.2 mg/dL (0.55-1.3)
[2024-06-30] MEDS ORDERED: BANATROL PLUS POWDER PACKET PO SCH (14:00)
[2024-06-30] MEDS: POTASSIUM CHLORIDE ORAL LIQUID 20 MEQ/15 ML PO ONE (14:43)
[2024-06-30] MEDS: PEG 3350/NA SULF BICARB CL/KCL 4000 ML SOLN.RECON PO ONE (17:20)
[2024-07-01 09:52] LABS: BASO % 0.2 % (0-2.0); EOS % 1.9 % (0-4.5); HEMATOCRIT 31.9 % (35.4-49); HEMOGLOBIN 10.5 GM/dL (11.7-16.9); LYMPH % 8.1 % (8-40); MCH 28.6 pg (25.7-33.7); MCHC 33.1 g/dl (32.0-35.9); MEAN CELL VOLUME 86.6 fl (80-96); MEAN PLT VOLUME 7.2 fl (7.5-11.1); MONO % 14.9 % (3.8-10.2); NEUT % 74.9 % (42.8-82.8); PLATELET COUNT 226 10^3/uL (134-434); RBC 3.69 M/mm3 (4.00-5.60); RDW 15.2 % (11.9-15.9); WHITE BLOOD COUNT 3.8 K/mm3 (4.0-10.0)
[2024-07-01 09:56] LABS: INR 1.57 (0.83-1.09); PROTHROMBIN TIME (PATIENT) 17.8 SEC (9.7-13.0)
[2024-07-01 10:12] LABS: POTASSIUM 3.5 mmol/L (3.5-5.1)
[2024-07-01 10:16] LABS: CALCIUM 9.5 mg/dL (8.5-10.1)
[2024-07-01 10:19] LABS: BLOOD UREA NITROGEN 5.1 mg/dL (7-18)
[2024-07-01 10:20] LABS: CREATININE 1.1 mg/dL (0.55-1.3)
[2024-07-01 10:22] LABS: BILIRUBIN,TOTAL 0.4 mg/dL (0.2-1); TOT PROT 6.9 g/dl (6.4-8.2)
[2024-07-01 10:28] LABS: ALBUMIN 3.1 g/dl (3.4-5.0)
[2024-07-01] MEDS: SODIUM CHLORIDE 1,000 ML IV SCH (15:02)
[2024-07-01] MEDS: SUCRALFATE 1 GM/10 ML UNIT DOSE CUPS NR SCH (22:31)
[2024-07-02] MEDS: POLYETHYLENE GLYCOL (HEALTHYLAX) 3350 17 GM PACKET PO SCH (09:10)
[2024-07-02 09:20] LABS: BASO % 0.4 % (0-2.0); EOS % 2.1 % (0-4.5); HEMATOCRIT 30.3 % (35.4-49); HEMOGLOBIN 10.1 GM/dL (11.7-16.9); LYMPH % 6.7 % (8-40); MCH 29.3 pg (25.7-33.7); MCHC 33.3 g/dl (32.0-35.9); MEAN CELL VOLUME 87.9 fl (80-96); MEAN PLT VOLUME 7.5 fl (7.5-11.1); MONO % 13.5 % (3.8-10.2); NEUT % 77.3 % (42.8-82.8); PLATELET COUNT 208 10^3/uL (134-434); RBC 3.44 M/mm3 (4.00-5.60); RDW 15.1 % (11.9-15.9); WHITE BLOOD COUNT 4.6 K/mm3 (4.0-10.0)
[2024-07-02 09:47] LABS: POTASSIUM 3.6 mmol/L (3.5-5.1)
[2024-07-02 10:02] LABS: BLOOD UREA NITROGEN 8.7 mg/dL (7-18)
[2024-07-02 10:05] LABS: CREATININE 1.1 mg/dL (0.55-1.3)
[2024-07-05 09:59] LABS: BASO % 0.2 % (0-2.0); EOS % 2.3 % (0-4.5); HEMATOCRIT 31.5 % (35.4-49); HEMOGLOBIN 10.4 GM/dL (11.7-16.9); LYMPH % 6.8 % (8-40); MCH 29.2 pg (25.7-33.7); MCHC 33.1 g/dl (32.0-35.9); MEAN PLT VOLUME 7.4 fl (7.5-11.1); MONO % 11.1 % (3.8-10.2); NEUT % 79.6 % (42.8-82.8); PLATELET COUNT 233 10^3/uL (134-434); RBC 3.57 M/mm3 (4.00-5.60); WHITE BLOOD COUNT 4.3 K/mm3 (4.0-10.0)
[2024-07-05 10:23] LABS: POTASSIUM 3.5 mmol/L (3.5-5.1)
[2024-07-05 10:24] LABS: CALCIUM 9.2 mg/dL (8.5-10.1)
[2024-07-05 10:25] LABS: BLOOD UREA NITROGEN 8.4 mg/dL (7-18)
[2024-07-05 10:29] LABS: CREATININE 1.1 mg/dL (0.55-1.3)
[2024-07-05 18:52] VITALS: RESP 18
[2024-07-06 14:58] VITALS: BP 118/72; PULSE 82; TEMP 99.1
== END 2024-07-06 15:09 | DRG 394 ==
LOC: JER 08:07 → JERBED 16:03 → J8W 22:26 → OBSVTOIN 06-29 13:13 → J8W 06-30 20:02
PROVIDERS: ADMIT Internal Medicine; ATTEND Internal Medicine
PROC: 0DBN8ZX Excision of Sigmoid Colon, Via Natural or Artificial Opening Endoscopic, Diagnostic (ICD-10-PCS; 2024-07-01)
PROC: 0DBP8ZX Excision of Rectum, Via Natural or Artificial Opening Endoscopic, Diagnostic (ICD-10-PCS; 2024-07-01)
PROC: 0DBM8ZX Excision of Descending Colon, Via Natural or Artificial Opening Endoscopic, Diagnostic (ICD-10-PCS; 2024-07-01)
PROC: 0DBH8ZX Excision of Cecum, Via Natural or Artificial Opening Endoscopic, Diagnostic (ICD-10-PCS; 2024-07-01)
PROC: 0DBK8ZX Excision of Ascending Colon, Via Natural or Artificial Opening Endoscopic, Diagnostic (ICD-10-PCS; principal; 2024-07-01 12:00)
DX: K62.7 Radiation proctitis (principal); C20 Malignant neoplasm of rectum; E46 Unspecified protein-calorie malnutrition; E78.5 Hyperlipidemia, unspecified; E87.6 Hypokalemia; I12.9 Hypertensive chronic kidney disease with stage 1 through stage 4 chronic kidney disease, or unspecified chronic kidney disease; E11.22 Type 2 diabetes mellitus with diabetic chronic kidney disease; B19.20 Unspecified viral hepatitis C without hepatic coma; N18.9 Chronic kidney disease, unspecified; K76.0 Fatty (change of) liver, not elsewhere classified; Z85.46 Personal history of malignant neoplasm of prostate; Z86.718 Personal history of other venous thrombosis and embolism; Z68.23 Body mass index [BMI] 23.0-23.9, adult
CPT/HCPCS: 36415; 74177-TC; 80048; 80053; 83735; 84100; 85025; 85610; 85651; 85730; 86140; 86850; 86900; 86901; 87045; 87046; 87205; 87209; 87324; 87449; 87635; 88305-TC; 94010; 97116-GP; 97161-GP; 99285-25; G0378; J1644; Q9967

== ENCOUNTER 2024-09-29 05:54 | Day surgery (SDC) | payer OTHER ==
[2024-09-27 18:33] VITALS: BMI 23.6
[2024-09-29 08:16] LABS: BASO % 0.4 % (0-2.0); EOS % 2.4 % (0-4.5); HEMATOCRIT 40.3 % (35.4-49); HEMOGLOBIN 13.1 GM/dL (11.7-16.9); MCHC 32.4 g/dl (32.0-35.9); MEAN CELL VOLUME 92.6 fl (80-96); MEAN PLT VOLUME 8.4 fl (7.5-11.1); MONO % 7.7 % (3.8-10.2); NEUT % 65.5 % (42.8-82.8); PLATELET COUNT 158 10^3/uL (134-434); RBC 4.35 M/mm3 (4.00-5.60); WHITE BLOOD COUNT 3.5 K/mm3 (4.0-10.0)
[2024-09-29] MEDS ORDERED: LIDOCAINE 2.5%/PRILOCAINE 2.5% (5 Gram/TUBE) TP ONE (08:44)
[2024-09-29] MEDS: LIDOCAINE 2.5%/PRILOCAINE 2.5% (5 Gram/TUBE) TP ONE (09:02)
[2024-09-29] MEDS ORDERED: MIDAZOLAM HCL 2 MG/2 ML SINGLE DOSE VIAL ONE (11:41)
[2024-09-29] MEDS ORDERED: FENTANYL CITRATE/PF 50 MCG/ML VIAL ONE (11:42)
[2024-09-29 13:36] VITALS: BP 182/79; PULSE 68; RESP 17; TEMP 97.5
== END 2024-09-29 14:21 | disposition home or self-care (01) ==
LOC: JRADIR 05:54
PROVIDERS: ATTEND Internal Medicine Hematology & Oncology
PROC: 0JH60XZ Insertion of Tunneled Vascular Access Device into Chest Subcutaneous Tissue and Fascia, Open Approach (ICD-10-PCS; principal; 2024-09-29)
DX: Z45.2 Encounter for adjustment and management of vascular access device (principal); C20 Malignant neoplasm of rectum
CPT/HCPCS: 36561; 85025

== ENCOUNTER 2024-10-04 10:33 | Day surgery (SDC) | payer OTHER ==
[2024-10-04 11:03] LABS: BASO % 0.2 % (0-2.0); EOS % 0.7 % (0-4.5); HEMATOCRIT 34.8 % (35.4-49); HEMOGLOBIN 11.7 GM/dL (11.7-16.9); LYMPH % 15.3 % (8-40); MCH 29.9 pg (25.7-33.7); MCHC 33.5 g/dl (32.0-35.9); MEAN CELL VOLUME 89.4 fl (80-96); MEAN PLT VOLUME 8.3 fl (7.5-11.1); MONO % 8.1 % (3.8-10.2); NEUT % 75.7 % (42.8-82.8); PLATELET COUNT 173 10^3/uL (134-434); RBC 3.89 M/mm3 (4.00-5.60); RDW 14.8 % (11.9-15.9)
[2024-10-04] MEDS: LIDOCAINE 2.5%/PRILOCAINE 2.5% (5 Gram/TUBE) TP ONE (11:15)
[2024-10-04 11:17] LABS: URINE APPEARANCE CLEAR; URINE COLOR YELLOW
[2024-10-04 11:18] LABS: PH,URINE 5.5 (5.0-8.0); URINE BILIRUBIN NEGATIVE (NEGATIVE); URINE GLUCOSE (UA) NEGATIVE (NEGATIVE); URINE KETONE NEGATIVE (NEGATIVE); URINE LEUK ESTERASE 3+ (NEGATIVE); URINE NITRITE NEGATIVE (NEGATIVE); URINE PROTEIN 2+ (NEGATIVE); URINE UROBILINOGEN 0.2 mg/dL (0.2-1.0)
[2024-10-04] MEDS: SODIUM CHLORIDE 250 ML IV ONE (11:26)
[2024-10-04] MEDS: PALONOSETRON HCL 0.25 MG/5 ML VIAL IVPUSH ONE (11:40)
[2024-10-04 11:42] LABS: CHLORIDE 107 mmol/L (98-107); POTASSIUM 4.6 mmol/L (3.5-5.1); SODIUM 143 mmol/L (136-145)
[2024-10-04] MEDS: DEXAMETHASONE SODIUM PHOSPHATE 10 MG, DIPHENHYDRAMINE 25 MG in SODIUM CHLORIDE 100 ML IVPB ONE (11:43)
[2024-10-04 11:48] LABS: ALBUMIN 3.6 g/dl (3.4-5.0); ANION GAP 11 mmol/L (4-13); BLOOD UREA NITROGEN 10.8 mg/dL (7-18); CALCIUM 9.7 mg/dL (8.5-10.1); CO2 26 mmol/L (21-32); GLUCOSE,RANDOM 71 mg/dL (74-106); MAGNESIUM 1.8 mg/dL (1.8-2.4)
[2024-10-04 11:52] LABS: CREATININE 1.3 mg/dL (0.55-1.3); SGOT/AST 15 U/L (15-37); SGPT/ALT 14 U/L (13-61)
[2024-10-04 11:53] LABS: BILIRUBIN,TOTAL 0.3 mg/dL (0.2-1); TOT PROT 7.7 g/dl (6.4-8.2)
[2024-10-04 11:54] LABS: ALK PHOS 76 U/L (45-117)
[2024-10-04] MEDS: LEUCOVORIN CALCIUM IVPB ONE (12:20)
[2024-10-04] MEDS: WATER IVPB ONE (12:20)
[2024-10-04] MEDS: DEXTROSE 5% IVPB ONE (12:20)
[2024-10-04] MEDS: FLUOROURACIL 500 MG/10 ML VIAL IVPUSH ONE (14:47)
[2024-10-04] MEDS: FLUOROURACIL CP ONE (14:48)
[2024-10-04] MEDS: SODIUM CHLORIDE CP ONE (14:48)
[2024-10-04] MEDS ORDERED: PORTA CATH FLUSH 10 ML IVPUSH PRN (15:33)
[2024-10-04 15:42] VITALS: BP 176/76; PULSE 76; RESP 18; TEMP 99.7
== END 2024-10-04 15:30 | disposition home or self-care (01) ==
LOC: JONCCHEMO 10:33 → J7W 10:34 → JONCCHEMO 15:30
PROVIDERS: ATTEND Internal Medicine Hematology & Oncology
DX: Z51.11 Encounter for antineoplastic chemotherapy (principal); C20 Malignant neoplasm of rectum
CPT/HCPCS: 36415; 80053; 81003; 83735; 85025; 87086; 87186; 96367; 96368; 96375; 96411; 96413; 96415; G0498; J9190; J9263

== ENCOUNTER 2024-10-06 10:02 | Day surgery (SDC) | payer OTHER ==
[2024-10-06 11:20] VITALS: BP 106/61; PULSE 82; RESP 18; TEMP 98.4
[2024-10-06] MEDS: PORTA CATH FLUSH 10 ML IVPUSH PRN (13:50)
== END 2024-10-06 14:05 | disposition home or self-care (01) ==
LOC: JONCCHEMO 10:02 → J7W 10:03 → JONCCHEMO 14:05
PROVIDERS: ATTEND Internal Medicine Hematology & Oncology
DX: Z53.8 Procedure and treatment not carried out for other reasons (principal)

== ENCOUNTER 2024-10-18 09:05 | Day surgery (SDC) | payer OTHER ==
[2024-10-18 09:34] LABS: HEMATOCRIT 34.2 % (35.4-49); HEMOGLOBIN 11.2 GM/dL (11.7-16.9); MCH 29.1 pg (25.7-33.7); MCHC 32.8 g/dl (32.0-35.9); MEAN CELL VOLUME 88.9 fl (80-96); MEAN PLT VOLUME 6.9 fl (7.5-11.1); PLATELET COUNT 142 10^3/uL (134-434); RBC 3.85 M/mm3 (4.00-5.60); RDW 14.2 % (11.9-15.9)
[2024-10-18 09:53] LABS: WHITE BLOOD COUNT 1.8 K/mm3 (4.0-10.0)
[2024-10-18] MEDS ORDERED: SODIUM CHLORIDE 250 ML IV ONE (10:00)
[2024-10-18 10:14] LABS: POTASSIUM 3.9 mmol/L (3.5-5.1)
[2024-10-18 10:16] LABS: ALBUMIN 3.5 g/dl (3.4-5.0); BLOOD UREA NITROGEN 13.6 mg/dL (7-18); CALCIUM 9.8 mg/dL (8.5-10.1); MAGNESIUM 1.7 mg/dL (1.8-2.4)
[2024-10-18 10:19] LABS: CREATININE 1.4 mg/dL (0.55-1.3)
[2024-10-18 10:21] LABS: ANISOCYTOSIS 0; BILIRUBIN,TOTAL 0.3 mg/dL (0.2-1); MACROCYTOSIS 0; TOT PROT 7.7 g/dl (6.4-8.2)
[2024-10-18 10:24] LABS: PLATELET ESTIMATE ADEQUATE
[2024-10-18] MEDS ORDERED: DEXAMETHASONE SODIUM PHOSPHATE 10 MG, DIPHENHYDRAMINE 25 MG in SODIUM CHLORIDE 100 ML IVPB ONE (10:30)
[2024-10-18] MEDS ORDERED: PALONOSETRON HCL 0.25 MG/5 ML VIAL IVPUSH ONE (10:30)
[2024-10-18] MEDS ORDERED: DEXTROSE 5% IVPB ONE (11:00)
[2024-10-18] MEDS ORDERED: WATER IVPB ONE (11:00)
[2024-10-18] MEDS ORDERED: LEUCOVORIN CALCIUM IVPB ONE (11:00)
[2024-10-18 11:04] LABS: PH,URINE 5.5 (5.0-8.0); URINE APPEARANCE Clear; URINE BILIRUBIN Negative (NEGATIVE); URINE COLOR Yellow; URINE GLUCOSE (UA) Negative (NEGATIVE); URINE KETONE Negative (NEGATIVE); URINE LEUK ESTERASE Trace (NEGATIVE); URINE NITRITE Negative (NEGATIVE); URINE PROTEIN 2+ (NEGATIVE); URINE UROBILINOGEN 0.2 mg/dL (0.2-1.0)
[2024-10-18 11:13] LABS: URINE WBC 142.3 /uL (0-25.8)
[2024-10-18 11:14] LABS: EPI CELLS 3.4 /uL (0-25.1); HYALINE CASTS 2.19 /uL (0-3.1); URINE BACTERIA 105.8 /uL (0-1359)
[2024-10-18] MEDS: TBO-FILGRASTIM 300 MCG/0.5 ML DISP.SYRINGE SQ ONE (11:17)
[2024-10-18] MEDS: PORTA CATH FLUSH 10 ML IVPUSH PRN (11:20)
[2024-10-18] MEDS ORDERED: FLUOROURACIL 500 MG/10 ML VIAL IVPUSH ONE (13:00)
[2024-10-18] MEDS ORDERED: FLUOROURACIL CP ONE (13:15)
[2024-10-18] MEDS ORDERED: SODIUM CHLORIDE CP ONE (13:15)
[2024-10-18 14:30] VITALS: BP 140/82; PULSE 90; RESP 20; TEMP 98.3
== END 2024-10-18 11:30 | disposition home or self-care (01) ==
LOC: J7W 09:05 → JONCCHEMO 09:05
PROVIDERS: ATTEND Internal Medicine Hematology & Oncology
PROC: 3E013GC Introduction of Other Therapeutic Substance into Subcutaneous Tissue, Percutaneous Approach (ICD-10-PCS; principal; 2024-10-18)
DX: Z76.89 Persons encountering health services in other specified circumstances (principal); C20 Malignant neoplasm of rectum
CPT/HCPCS: 36415; 80053; 81003; 83735; 85025; 87086; 87186; 96372; J1447

== ENCOUNTER 2024-10-19 07:48 | Day surgery (SDC) | payer OTHER ==
[2024-10-19] MEDS: TBO-FILGRASTIM 300 MCG/0.5 ML DISP.SYRINGE SQ ONE (08:20)
[2024-10-19 08:52] VITALS: BP 123/73; PULSE 83; RESP 16; TEMP 98.8
== END 2024-10-19 08:30 | disposition home or self-care (01) ==
LOC: JONCCHEMO 07:48 → J7W 08:00 → JONCCHEMO 08:30
PROVIDERS: ATTEND Internal Medicine Hematology & Oncology
PROC: 3E013GC Introduction of Other Therapeutic Substance into Subcutaneous Tissue, Percutaneous Approach (ICD-10-PCS; principal; 2024-10-19)
DX: Z76.89 Persons encountering health services in other specified circumstances (principal); C20 Malignant neoplasm of rectum
CPT/HCPCS: 96372; J1447

== ENCOUNTER 2024-10-20 08:47 | Day surgery (SDC) | payer OTHER ==
[2024-10-20] MEDS: TBO-FILGRASTIM 300 MCG/0.5 ML DISP.SYRINGE SQ ONE (09:20)
[2024-10-20 12:03] VITALS: BP 105/66; PULSE 81; RESP 20; TEMP 99
== END 2024-10-20 10:30 | disposition home or self-care (01) ==
LOC: JONCCHEMO 08:47 → J7W 08:48 → JONCCHEMO 10:30
PROVIDERS: ATTEND Internal Medicine Hematology & Oncology
PROC: 3E013GC Introduction of Other Therapeutic Substance into Subcutaneous Tissue, Percutaneous Approach (ICD-10-PCS; principal; 2024-10-20)
DX: Z76.89 Persons encountering health services in other specified circumstances (principal); C20 Malignant neoplasm of rectum
CPT/HCPCS: 96365; J1447

== ENCOUNTER 2024-10-25 09:03 | Day surgery (SDC) | payer OTHER ==
[2024-10-25 10:26] LABS: HEMATOCRIT 36.9 % (35.4-49); HEMOGLOBIN 11.8 GM/dL (11.7-16.9); MCH 28.5 pg (25.7-33.7); MCHC 31.9 g/dl (32.0-35.9); MEAN CELL VOLUME 89.3 fl (80-96); MEAN PLT VOLUME 8.4 fl (7.5-11.1); PLATELET COUNT 174 10^3/uL (134-434); RBC 4.14 M/mm3 (4.00-5.60); RDW 14.5 % (11.9-15.9); WHITE BLOOD COUNT 4.8 K/mm3 (4.0-10.0)
[2024-10-25 10:45] LABS: CHLORIDE 109 mmol/L (98-107); POTASSIUM 3.9 mmol/L (3.5-5.1); SODIUM 142 mmol/L (136-145)
[2024-10-25 10:46] LABS: CALCIUM 9.9 mg/dL (8.5-10.1)
[2024-10-25 10:47] LABS: ALBUMIN 3.6 g/dl (3.4-5.0); ANION GAP 8 mmol/L (4-13); BLOOD UREA NITROGEN 10.3 mg/dL (7-18); CO2 26 mmol/L (21-32); GLUCOSE,RANDOM 81 mg/dL (74-106)
[2024-10-25 10:50] LABS: CREATININE 1.2 mg/dL (0.55-1.3); SGOT/AST 19 U/L (15-37); SGPT/ALT 17 U/L (13-61)
[2024-10-25 10:51] LABS: BILIRUBIN,TOTAL 0.2 mg/dL (0.2-1); TOT PROT 7.6 g/dl (6.4-8.2)
[2024-10-25 10:53] LABS: ALK PHOS 97 U/L (45-117)
[2024-10-25] MEDS: ERTAPENEM SODIUM 1 GM in SODIUM CHLORIDE 50 ML IVPB SCH (10:59)
[2024-10-25] MEDS: SODIUM CHLORIDE 250 ML IV ONE (11:00)
[2024-10-25 11:07] LABS: ANISOCYTOSIS 0; MACROCYTOSIS 0
[2024-10-25 11:44] LABS: HIV INTERPRETATION NEGATIVE (NEGATIVE)
[2024-10-25] MEDS: DEXAMETHASONE SODIUM PHOSPHATE 10 MG, DIPHENHYDRAMINE 25 MG in SODIUM CHLORIDE 100 ML IVPB ONE (11:44)
[2024-10-25] MEDS: PALONOSETRON HCL 0.25 MG/5 ML VIAL IVPUSH ONE (11:44)
[2024-10-25 12:21] LABS: URINE APPEARANCE CLEAR; URINE COLOR YELLOW; URINE GLUCOSE (UA) NEGATIVE (NEGATIVE)
[2024-10-25 12:22] LABS: PH,URINE 5.5 (5.0-8.0); URINE BILIRUBIN NEGATIVE (NEGATIVE); URINE KETONE TRACE (NEGATIVE); URINE LEUK ESTERASE NEGATIVE (NEGATIVE); URINE NITRITE NEGATIVE (NEGATIVE); URINE PROTEIN 1+ (NEGATIVE); URINE UROBILINOGEN 0.2 mg/dL (0.2-1.0)
[2024-10-25 12:23] LABS: EPI CELLS 4.6 /uL (0-25.1); HYALINE CASTS 0.41 /uL (0-3.1); URINE BACTERIA 20.7 /uL (0-1359); URINE RBC 465.9 /uL (0-23.9); URINE WBC 57.6 /uL (0-25.8)
[2024-10-25] MEDS: LEUCOVORIN CALCIUM IVPB ONE (12:46)
[2024-10-25] MEDS: DEXTROSE 5% IVPB ONE (12:46)
[2024-10-25] MEDS: WATER IVPB ONE (12:46)
[2024-10-25] MEDS: FLUOROURACIL 500 MG/10 ML VIAL IVPUSH ONE (15:04)
[2024-10-25] MEDS: SODIUM CHLORIDE CP ONE (15:05)
[2024-10-25] MEDS: FLUOROURACIL CP ONE (15:05)
[2024-10-25 16:37] VITALS: TEMP 98.4
[2024-10-25 16:49] VITALS: BP 168/84; PULSE 68; RESP 18
[2024-10-25] MEDS ORDERED: PORTA CATH FLUSH 10 ML IVPUSH PRN (16:49)
== END 2024-10-25 15:30 | disposition home or self-care (01) ==
LOC: JONCCHEMO 09:03 → J7W 09:06 → JONCCHEMO 15:30
PROVIDERS: ATTEND Internal Medicine Hematology & Oncology
DX: Z51.11 Encounter for antineoplastic chemotherapy (principal); C20 Malignant neoplasm of rectum
CPT/HCPCS: 36415; 80053; 81003; 83735; 85025; 86704; 86705; 86707; 86709; 86803; 87086; 87340; 87350; 87389; 87517; 87522; 96367; 96368; 96375; 96411; 96413; 96415; 96417; G0498; J9190; J9263

== ENCOUNTER 2024-10-26 09:28 | Day surgery (SDC) | payer OTHER ==
[2024-10-26] MEDS: ERTAPENEM SODIUM 1 GM in SODIUM CHLORIDE 50 ML IVPB ONE (09:40)
[2024-10-26] MEDS: PORTA CATH FLUSH 10 ML IVPUSH PRN (10:09)
[2024-10-26 12:16] VITALS: BP 115/67; PULSE 78; RESP 20; TEMP 98.2
== END 2024-10-26 10:20 | disposition home or self-care (01) ==
LOC: J7W 09:28 → JONCNONCHE 09:28
PROVIDERS: ATTEND Internal Medicine
DX: N30.00 Acute cystitis without hematuria (principal); B96.89 Other specified bacterial agents as the cause of diseases classified elsewhere
CPT/HCPCS: 96365

== ENCOUNTER 2024-10-27 12:47 | Day surgery (SDC) | payer OTHER ==
[2024-10-27] MEDS: IRON SUCROSE INJECTION 200 MG in SODIUM CHLORIDE 100 ML IVPB ONE (13:47)
[2024-10-27] MEDS: ERTAPENEM SODIUM 1 GM in SODIUM CHLORIDE 50 ML IVPB ONE (14:36)
[2024-10-27] MEDS: PORTA CATH FLUSH 10 ML IVPUSH PRN (15:15)
[2024-10-27 16:57] VITALS: BP 143/63; PULSE 66; RESP 18
[2024-10-27 17:24] VITALS: TEMP 98.7
[2024-10-27] MEDS ORDERED: PORTA CATH FLUSH 10 ML IVPUSH PRN (17:41)
== END 2024-10-27 15:30 | disposition home or self-care (01) ==
LOC: JONCCHEMO 12:47 → J7W 12:47 → JONCCHEMO 15:30
PROVIDERS: ATTEND Internal Medicine Hematology & Oncology
DX: Z53.8 Procedure and treatment not carried out for other reasons (principal)
CPT/HCPCS: 96365; J1756

== ENCOUNTER 2024-10-28 12:36 | Day surgery (SDC) | payer OTHER ==
[~2024-10-28 12:36] MED LIST: ERTAPENEM SODIUM 1 GM in SODIUM CHLORIDE 50 ML IVPB ONE
[2024-10-28] MEDS: ERTAPENEM SODIUM 1 GM in SODIUM CHLORIDE 50 ML IVPB ONE (13:14)
[2024-10-28] MEDS: PORTA CATH FLUSH 10 ML IVPUSH PRN (13:50)
[2024-10-28 17:31] VITALS: BP 125/61; PULSE 81; RESP 20; TEMP 98.4
== END 2024-10-28 14:10 | disposition home or self-care (01) ==
LOC: JONCNONCHE 12:36 → J7W 12:36 → JONCNONCHE 14:10
PROVIDERS: ATTEND Internal Medicine Hematology & Oncology
DX: N30.00 Acute cystitis without hematuria (principal)
CPT/HCPCS: 96365

== ENCOUNTER 2024-10-29 12:30 | Day surgery (SDC) | payer OTHER ==
[2024-10-29] MEDS: ERTAPENEM SODIUM 1 GM in SODIUM CHLORIDE 50 ML IVPB ONE (12:48)
[2024-10-29] MEDS ORDERED: PORTA CATH FLUSH 10 ML IVPUSH PRN (13:00)
[2024-10-29] MEDS: PORTA CATH FLUSH 10 ML IVPUSH PRN (13:25)
[2024-10-29 15:52] VITALS: RESP 18; TEMP 98.2
[2024-11-01 08:07] VITALS: BP 122/66; PULSE 96
== END 2024-10-29 13:35 | disposition home or self-care (01) ==
LOC: JONCNONCHE 12:30 → J7W 12:31 → JONCNONCHE 13:35
PROVIDERS: ATTEND Internal Medicine Hematology & Oncology
DX: N30.00 Acute cystitis without hematuria (principal); B96.89 Other specified bacterial agents as the cause of diseases classified elsewhere
CPT/HCPCS: 96365

== ENCOUNTER 2024-11-02 14:25 | Day surgery (SDC) | payer OTHER ==
[2024-11-02] MEDS: TBO-FILGRASTIM 300 MCG/0.5 ML DISP.SYRINGE SQ ONE (14:24)
[2024-11-02 18:26] VITALS: BP 127/80; PULSE 83; RESP 20; TEMP 98.1
== END 2024-11-02 14:30 | disposition home or self-care (01) ==
LOC: JONCNONCHE 14:25 → J7W 14:27 → JONCNONCHE 14:30
PROVIDERS: ATTEND Internal Medicine Hematology & Oncology
PROC: 3E013GC Introduction of Other Therapeutic Substance into Subcutaneous Tissue, Percutaneous Approach (ICD-10-PCS; principal; 2024-11-02)
DX: C20 Malignant neoplasm of rectum (principal); Z76.89 Persons encountering health services in other specified circumstances
CPT/HCPCS: 96372; J1447

== ENCOUNTER 2024-11-03 09:12 | Day surgery (SDC) | payer OTHER ==
[2024-11-03] MEDS: D5-1/2NS+20 MEQ KCL - 20 MEQ/1,000 ML INFUS.BAG IV SCH (10:05)
[2024-11-03] MEDS: TBO-FILGRASTIM 300 MCG/0.5 ML DISP.SYRINGE SQ ONE (10:34)
[2024-11-03 11:04] LABS: CHLORIDE 111 mmol/L (98-107); POTASSIUM 3.7 mmol/L (3.5-5.1); SODIUM 141 mmol/L (136-145)
[2024-11-03 11:06] LABS: CALCIUM 8.6 mg/dL (8.5-10.1)
[2024-11-03 11:07] LABS: ALBUMIN 3.1 g/dl (3.4-5.0); ANION GAP 6 mmol/L (4-13); CO2 24 mmol/L (21-32); GLUCOSE,RANDOM 150 mg/dL (74-106); MAGNESIUM 1.7 mg/dL (1.8-2.4)
[2024-11-03 11:10] LABS: CREATININE 1.2 mg/dL (0.55-1.3); SGOT/AST 22 U/L (15-37); SGPT/ALT 16 U/L (13-61)
[2024-11-03 11:12] LABS: BILIRUBIN,TOTAL 0.2 mg/dL (0.2-1); TOT PROT 6.5 g/dl (6.4-8.2)
[2024-11-03 11:13] LABS: ALK PHOS 72 U/L (45-117)
[2024-11-03] MEDS: MAGNESIUM 2GM/50ML STERILE WATER IVPB IVPB ONE (11:41)
[2024-11-03 15:04] VITALS: BP 126/72; PULSE 96; RESP 20; TEMP 98.7
[2024-11-03] MEDS ORDERED: PORTA CATH FLUSH 10 ML IVPUSH PRN (15:04)
== END 2024-11-03 13:30 | disposition home or self-care (01) ==
LOC: JONCCHEMO 09:12 → J7W 09:13 → JONCCHEMO 13:30
PROVIDERS: ATTEND Internal Medicine Hematology & Oncology
PROC: 3E043GC Introduction of Other Therapeutic Substance into Central Vein, Percutaneous Approach (ICD-10-PCS; principal; 2024-11-03)
PROC: 3E013GC Introduction of Other Therapeutic Substance into Subcutaneous Tissue, Percutaneous Approach (ICD-10-PCS; 2024-11-03)
DX: C20 Malignant neoplasm of rectum (principal); Z76.89 Persons encountering health services in other specified circumstances
CPT/HCPCS: 36415; 80053; 83735; 96365; 96372; J1447

== ENCOUNTER 2024-11-04 09:40 | Day surgery (SDC) | payer OTHER ==
[2024-11-04] MEDS: TBO-FILGRASTIM 300 MCG/0.5 ML DISP.SYRINGE SQ ONE (10:07)
[2024-11-04 15:07] VITALS: BP 106/65; PULSE 74; RESP 18; TEMP 98.3
== END 2024-11-04 10:30 | disposition home or self-care (01) ==
LOC: JONCCHEMO 09:40 → J7W 09:40 → JONCCHEMO 10:30
PROVIDERS: ATTEND Internal Medicine Hematology & Oncology
PROC: 3E023GC Introduction of Other Therapeutic Substance into Muscle, Percutaneous Approach (ICD-10-PCS; principal; 2024-11-04)
DX: C20 Malignant neoplasm of rectum (principal); Z76.89 Persons encountering health services in other specified circumstances
CPT/HCPCS: 96372; J1447

== ENCOUNTER 2024-11-16 11:56 | Day surgery (SDC) | payer OTHER ==
[2024-11-16] MEDS: SODIUM CHLORIDE 250 ML IV ONE (12:14)
[2024-11-16 12:34] LABS: BASO % 0.5 % (0-2.0); EOS % 1.1 % (0-4.5); HEMATOCRIT 30.7 % (35.4-49); HEMOGLOBIN 10.3 GM/dL (11.7-16.9); LYMPH % 21.8 % (8-40); MCH 29.3 pg (25.7-33.7); MCHC 33.4 g/dl (32.0-35.9); MEAN CELL VOLUME 87.5 fl (80-96); MEAN PLT VOLUME 7.7 fl (7.5-11.1); MONO % 14.9 % (3.8-10.2); NEUT % 61.7 % (42.8-82.8); PLATELET COUNT 253 10^3/uL (134-434); RDW 15.5 % (11.9-15.9); WHITE BLOOD COUNT 3.6 K/mm3 (4.0-10.0)
[2024-11-16 13:06] LABS: POTASSIUM 4.2 mmol/L (3.5-5.1)
[2024-11-16 13:08] LABS: CALCIUM 9.4 mg/dL (8.5-10.1)
[2024-11-16 13:09] LABS: BLOOD UREA NITROGEN 9.5 mg/dL (7-18); MAGNESIUM 1.9 mg/dL (1.8-2.4)
[2024-11-16 13:12] LABS: CREATININE 1.2 mg/dL (0.55-1.3)
[2024-11-16 13:13] LABS: BILIRUBIN,TOTAL 0.2 mg/dL (0.2-1)
[2024-11-16 13:14] LABS: TOT PROT 6.9 g/dl (6.4-8.2)
[2024-11-16] MEDS: DEXAMETHASONE SODIUM PHOSPHATE 10 MG, DIPHENHYDRAMINE 25 MG in SODIUM CHLORIDE 100 ML IVPB ONE (13:46)
[2024-11-16] MEDS: PALONOSETRON HCL 0.25 MG/5 ML VIAL IVPUSH ONE (13:51)
[2024-11-16] MEDS: WATER IVPB ONE (14:59)
[2024-11-16] MEDS: LEUCOVORIN IVPB ONE (14:59)
[2024-11-16] MEDS: DEXTROSE 5% IVPB ONE (14:59)
[2024-11-16] MEDS: FLUOROURACIL CP ONE (17:16)
[2024-11-16] MEDS: SODIUM CHLORIDE CP ONE (17:16)
[2024-11-16 18:14] VITALS: BP 119/61; PULSE 74; RESP 20; TEMP 98.2
[2024-11-16] MEDS: PORTA CATH FLUSH 10 ML IVPUSH PRN (18:15)
== END 2024-11-16 18:24 | disposition home or self-care (01) ==
LOC: JONCCHEMO 11:56
PROVIDERS: ATTEND Internal Medicine Hematology & Oncology
DX: Z51.11 Encounter for antineoplastic chemotherapy (principal); C20 Malignant neoplasm of rectum
CPT/HCPCS: 36415; 80053; 83735; 85025; 96367; 96368; 96375; 96413; 96415; G0498; J9263

== ENCOUNTER 2024-11-18 13:18 | Day surgery (SDC) | payer OTHER ==
[2024-11-18] MEDS: IRON SUCROSE INJECTION 200 MG in SODIUM CHLORIDE 100 ML IVPB ONE (15:23)
[2024-11-18 16:08] VITALS: RESP 20; TEMP 98.1
[2024-11-18 16:10] VITALS: BP 121/69; PULSE 73
[2024-11-18] MEDS: PORTA CATH FLUSH 10 ML IVPUSH PRN (16:18)
== END 2024-11-18 16:26 | disposition home or self-care (01) ==
LOC: JONCCHEMO 13:18 → J7W 13:19 → JONCCHEMO 16:26
PROVIDERS: ATTEND Internal Medicine Hematology & Oncology
PROC: 3E043GC Introduction of Other Therapeutic Substance into Central Vein, Percutaneous Approach (ICD-10-PCS; principal; 2024-11-18)
DX: D50.9 Iron deficiency anemia, unspecified (principal); Z76.89 Persons encountering health services in other specified circumstances
CPT/HCPCS: 96365; J1756

== ENCOUNTER 2024-11-29 10:18 | Day surgery (SDC) | payer OTHER ==
[2024-11-29 11:01] LABS: BASO % 0.6 % (0-2.0); EOS % 1.4 % (0-4.5); HEMATOCRIT 30.6 % (35.4-49); HEMOGLOBIN 10.3 GM/dL (11.7-16.9); LYMPH % 18.8 % (8-40); MCH 29.8 pg (25.7-33.7); MCHC 33.6 g/dl (32.0-35.9); MEAN CELL VOLUME 88.9 fl (80-96); MEAN PLT VOLUME 7.9 fl (7.5-11.1); MONO % 12.5 % (3.8-10.2); NEUT % 66.7 % (42.8-82.8); PLATELET COUNT 152 10^3/uL (134-434); RBC 3.44 M/mm3 (4.00-5.60); WHITE BLOOD COUNT 2.9 K/mm3 (4.0-10.0)
[2024-11-29 11:16] LABS: CHLORIDE 108 mmol/L (98-107); POTASSIUM 3.7 mmol/L (3.5-5.1); SODIUM 141 mmol/L (136-145)
[2024-11-29 11:18] LABS: CALCIUM 9.3 mg/dL (8.5-10.1)
[2024-11-29 11:19] LABS: ALBUMIN 3.2 g/dl (3.4-5.0); ANION GAP 7 mmol/L (4-13); BLOOD UREA NITROGEN 10.9 mg/dL (7-18); CO2 26 mmol/L (21-32); GLUCOSE,RANDOM 123 mg/dL (74-106); MAGNESIUM 1.8 mg/dL (1.8-2.4)
[2024-11-29 11:22] LABS: CREATININE 1.1 mg/dL (0.55-1.3); SGOT/AST 19 U/L (15-37); SGPT/ALT 13 U/L (13-61)
[2024-11-29 11:23] LABS: BILIRUBIN,TOTAL 0.3 mg/dL (0.2-1)
[2024-11-29 11:25] LABS: ALK PHOS 79 U/L (45-117); TOT PROT 6.8 g/dl (6.4-8.2)
[2024-11-29] MEDS: SODIUM CHLORIDE 250 ML IV ONE (11:40)
[2024-11-29] MEDS: DEXAMETHASONE SODIUM PHOSPHATE 10 MG, DIPHENHYDRAMINE 25 MG in SODIUM CHLORIDE 100 ML IVPB ONE (12:16)
[2024-11-29] MEDS: WATER IVPB ONE (12:53)
[2024-11-29] MEDS: DEXTROSE 5% IVPB ONE (12:53)
[2024-11-29] MEDS: PALONOSETRON HCL 0.25 MG/5 ML VIAL IVPUSH ONE (12:53)
[2024-11-29] MEDS: LEUCOVORIN IVPB ONE (12:53)
[2024-11-29] MEDS: FLUOROURACIL CP ONE (15:14)
[2024-11-29] MEDS: SODIUM CHLORIDE CP ONE (15:14)
[2024-11-29 15:53] VITALS: RESP 18; TEMP 98.5
[2024-11-29 16:06] VITALS: BP 125/63; PULSE 67
[2024-11-29] MEDS ORDERED: PORTA CATH FLUSH 10 ML IVPUSH PRN (16:06)
== END 2024-11-29 15:30 | disposition home or self-care (01) ==
LOC: JONCCHEMO 10:18 → J7W 10:19 → JONCCHEMO 15:30
PROVIDERS: ATTEND Internal Medicine Hematology & Oncology
DX: Z51.11 Encounter for antineoplastic chemotherapy (principal); C20 Malignant neoplasm of rectum
CPT/HCPCS: 36415; 80053; 83735; 85025; 87517; 87522; 96367; 96368; 96375; 96413; 96415; G0498; J9263

== ENCOUNTER 2024-12-01 10:08 | Day surgery (SDC) | payer OTHER ==
[2024-12-01] MEDS: IRON SUCROSE INJECTION 200 MG in SODIUM CHLORIDE 100 ML IVPB ONE (13:22)
[2024-12-01 14:17] VITALS: TEMP 97.2
[2024-12-01 14:21] VITALS: RESP 18
[2024-12-01 14:23] VITALS: BP 148/70; PULSE 72
[2024-12-01] MEDS: PORTA CATH FLUSH 10 ML IVPUSH PRN (14:30)
== END 2024-12-01 14:30 | disposition home or self-care (01) ==
LOC: JONCCHEMO 10:08 → J7W 10:08 → JONCCHEMO 14:30
PROVIDERS: ATTEND Internal Medicine Hematology & Oncology
PROC: 3E033GC Introduction of Other Therapeutic Substance into Peripheral Vein, Percutaneous Approach (ICD-10-PCS; principal; 2024-12-01)
DX: E61.1 Iron deficiency (principal)
CPT/HCPCS: 96365; J1756

== ENCOUNTER 2024-12-05 09:43 | Inpatient (IN) | payer OTHER ==
[2024-12-05] MEDS ORDERED: ACETAMINOPHEN INJECTION 100 ML ONE (11:25)
[2024-12-05] MEDS: ACETAMINOPHEN 1000 MG/100 ML BAG IVPB ONE (11:59)
[2024-12-05 12:00] LABS: VENOUS BASE EXCESS -0.4 mmol/L (-2-2); VENOUS O2 SATURATION 68.3 % (70-80); VENOUS PCO2 36.6 mmHg (38-52); VENOUS PH 7.428 (7.310-7.410)
[2024-12-05 12:05] LABS: BASO % 0.6 % (0-2.0); EOS % 0.8 % (0-4.5); HEMATOCRIT 32.1 % (35.4-49); HEMOGLOBIN 10.4 GM/dL (11.7-16.9); LYMPH % 24.4 % (8-40); MCH 29.2 pg (25.7-33.7); MCHC 32.3 g/dl (32.0-35.9); MEAN CELL VOLUME 90.4 fl (80-96); MEAN PLT VOLUME 7.9 fl (7.5-11.1); NEUT % 60.2 % (42.8-82.8); PLATELET COUNT 137 10^3/uL (134-434); RBC 3.55 M/mm3 (4.00-5.60); RDW 18.8 % (11.9-15.9)
[2024-12-05] MEDS: SODIUM CHLORIDE 1,000 ML IV STA (12:12)
[2024-12-05 12:14] LABS: INR 1.07 (0.83-1.09); PROTHROMBIN TIME (PATIENT) 12.3 SEC (9.7-13.0)
[2024-12-05 12:17] LABS: ACTIVATED PTT 36.2 SECONDS (25.2-36.5)
[2024-12-05 12:20] LABS: POTASSIUM 3.8 mmol/L (3.5-5.1)
[2024-12-05 12:22] LABS: EPI CELLS 6 /uL (0-25.1); HYALINE CASTS 0 /uL (0-3.1); PH,URINE 8.5 (5.0-8.0); URINE APPEARANCE CLEAR; URINE BACTERIA 65 /uL (0-1359); URINE BILIRUBIN NEGATIVE (NEGATIVE); URINE COLOR YELLOW; URINE GLUCOSE (UA) NEGATIVE (NEGATIVE); URINE KETONE NEGATIVE (NEGATIVE); URINE LEUK ESTERASE NEGATIVE (NEGATIVE); URINE NITRITE NEGATIVE (NEGATIVE); URINE PROTEIN 2+ (NEGATIVE); URINE RBC 16 /uL (0-23.9); URINE UROBILINOGEN 0.2 mg/dL (0.2-1.0)
[2024-12-05 12:23] LABS: ALBUMIN 3.2 g/dl (3.4-5.0); BLOOD UREA NITROGEN 11.6 mg/dL (7-18); CALCIUM 9.1 mg/dL (8.5-10.1)
[2024-12-05 12:26] LABS: CREATININE 1.1 mg/dL (0.55-1.3)
[2024-12-05 12:28] LABS: BILIRUBIN,TOTAL 0.5 mg/dL (0.2-1)
[2024-12-05 12:31] LABS: LACTIC ACID 2.6 mmol/L (0.4-2.0)
[2024-12-05 15:10] LABS: URINE WBC 56 /uL (0-25.8)
[2024-12-05] MEDS ORDERED: PIPERACILLIN/TAZOB 4.5 GM 4.5 GM/100 ML BAG IVPB ONE (17:36)
[2024-12-05] MEDS: PIPERACILLIN/TAZOB 4.5 GM 4.5 GM/100 ML BAG IVPB ONE (17:48)
[2024-12-05] MEDS ORDERED: VANCOMYCIN 1 GM PREMIX (F) 1 GM/200 ML BAG ONE (18:13)
[2024-12-05] MEDS: VANCOMYCIN 1,000 MG in DEXTROSE 5%-WATER - 250 ML IVPB ONE (18:30)
[2024-12-05] MEDS: LACTATED RINGERS SOLUTION 1,000 ML IV SCH (20:09)
[2024-12-05] MEDS: LATANOPROST 0.005% OPHTH SOLN 2.5ML BOTTLE OU SCH (23:38)
[2024-12-05] MEDS: ARTIFICIAL TEARS OPHTHALMIC DROPS OU SCH (23:38)
[2024-12-05] MEDS: HEPARIN NA (PORCINE) 5,000 UNITS/ML 1ML VIAL SQ SCH (23:42)
[2024-12-06] MEDS: ACETAMINOPHEN 1000 MG/100 ML BAG IVPB PRN (01:59)
[2024-12-06] MEDS ORDERED: PIPERACILLIN/TAZOB 3.375 GM 3.375 GM in DEXTROSE 5%-WATER - 50 ML IVPB SCH (02:00)
[2024-12-06 02:27] VITALS: BMI 21.9
[2024-12-06] MEDS: PIPERACILLIN/TAZOB 3.375 GM 50 ML IVPB SCH ×2 (02:30→11:07)
[2024-12-06 09:29] LABS: BASO % 0.5 % (0-2.0); EOS % 0.2 % (0-4.5); HEMATOCRIT 34.9 % (35.4-49); HEMOGLOBIN 11.7 GM/dL (11.7-16.9); LYMPH % 10.5 % (8-40); MCH 29.8 pg (25.7-33.7); MCHC 33.4 g/dl (32.0-35.9); MEAN CELL VOLUME 89.3 fl (80-96); MEAN PLT VOLUME 7.9 fl (7.5-11.1); MONO % 11.9 % (3.8-10.2); NEUT % 76.9 % (42.8-82.8); PLATELET COUNT 124 10^3/uL (134-434); RBC 3.91 M/mm3 (4.00-5.60); RDW 19.1 % (11.9-15.9); WHITE BLOOD COUNT 3.2 K/mm3 (4.0-10.0)
[2024-12-06] MEDS: TAMSULOSIN HCL 0.4 MG CAP PO SCH (09:31)
[2024-12-06] MEDS: MULTIVITAMINS (DAILY MVI) TABLET (FP) PO SCH (09:31)
[2024-12-06 09:55] LABS: POTASSIUM 4.2 mmol/L (3.5-5.1)
[2024-12-06 10:09] LABS: ALBUMIN 3.4 g/dl (3.4-5.0); CALCIUM 9.5 mg/dL (8.5-10.1)
[2024-12-06 10:10] LABS: MAGNESIUM 1.9 mg/dL (1.8-2.4)
[2024-12-06 10:13] LABS: BILIRUBIN,TOTAL 0.8 mg/dL (0.2-1); CREATININE 1.3 mg/dL (0.55-1.3)
[2024-12-06 10:14] LABS: TOT PROT 7.4 g/dl (6.4-8.2)
[2024-12-06] MEDS: CYANOCOBALAMIN 1,000 MCG TABLET (FP) PO SCH (11:07)
[2024-12-06] MEDS ORDERED: ACETAMINOPHEN 1000 MG/100 ML BAG IVPB PRN (14:06)
[2024-12-06] MEDS: amLODIPine BESYLATE 10 MG TABLET (FP) PO SCH (14:41)
[2024-12-06] MEDS: ENTECAVIR 0.5 MG TABLET PO SCH (15:03)
[2024-12-06] MEDS: VANCOMYCIN/WATER 1250 MG 1,250 MG/250 ML BAG IVPB SCH (17:05)
[2024-12-06] MEDS: ATORVASTATIN CA 10 MG TABLET (FP) PO SCH (21:48)
[2024-12-07 08:28] LABS: BASO % 0.5 % (0-2.0); EOS % 0.1 % (0-4.5); HEMATOCRIT 29.3 % (35.4-49); LYMPH % 10.5 % (8-40); MCH 30.3 pg (25.7-33.7); MEAN CELL VOLUME 89.1 fl (80-96); MEAN PLT VOLUME 8.4 fl (7.5-11.1); MONO % 19.4 % (3.8-10.2); NEUT % 69.5 % (42.8-82.8); PLATELET COUNT 118 10^3/uL (134-434); RBC 3.29 M/mm3 (4.00-5.60); RDW 19.8 % (11.9-15.9); WHITE BLOOD COUNT 2.8 K/mm3 (4.0-10.0)
[2024-12-07 08:46] LABS: POTASSIUM 3.6 mmol/L (3.5-5.1)
[2024-12-07 08:51] LABS: CALCIUM 8.8 mg/dL (8.5-10.1)
[2024-12-07 08:52] LABS: ALBUMIN 2.8 g/dl (3.4-5.0); BLOOD UREA NITROGEN 12.5 mg/dL (7-18); MAGNESIUM 1.8 mg/dL (1.8-2.4)
[2024-12-07 08:55] LABS: CREATININE 1.3 mg/dL (0.55-1.3)
[2024-12-07 08:57] LABS: BILIRUBIN,TOTAL 0.6 mg/dL (0.2-1); TOT PROT 6.2 g/dl (6.4-8.2)
[2024-12-07 10:58] LABS: ANISOCYTOSIS 1+; MACROCYTOSIS 1+; OVALOCYTE 1+
[2024-12-08 08:06] LABS: BASO % 0.3 % (0-2.0); EOS % 0.3 % (0-4.5); HEMATOCRIT 30.8 % (35.4-49); HEMOGLOBIN 10.4 GM/dL (11.7-16.9); LYMPH % 6.9 % (8-40); MCH 29.8 pg (25.7-33.7); MCHC 33.9 g/dl (32.0-35.9); MEAN CELL VOLUME 87.9 fl (80-96); MONO % 15.8 % (3.8-10.2); NEUT % 76.7 % (42.8-82.8); PLATELET COUNT 119 10^3/uL (134-434); RDW 19.2 % (11.9-15.9); WHITE BLOOD COUNT 2.8 K/mm3 (4.0-10.0)
[2024-12-08 08:33] LABS: POTASSIUM 3.4 mmol/L (3.5-5.1)
[2024-12-08 08:37] LABS: CALCIUM 8.7 mg/dL (8.5-10.1)
[2024-12-08 08:38] LABS: ALBUMIN 2.8 g/dl (3.4-5.0); MAGNESIUM 1.7 mg/dL (1.8-2.4)
[2024-12-08 08:41] LABS: CREATININE 1.2 mg/dL (0.55-1.3)
[2024-12-08 08:42] LABS: BILIRUBIN,TOTAL 0.5 mg/dL (0.2-1)
[2024-12-08 08:43] LABS: TOT PROT 6.4 g/dl (6.4-8.2)
[2024-12-08] MEDS ORDERED: ACETAMINOPHEN 325 MG TABLET (FP) PO PRN (10:18)
[2024-12-08] MEDS ORDERED: oxyCODONE HCL 5 MG TABLET PO PRN (10:18)
[2024-12-08] MEDS: MAGNESIUM OXIDE 400 MG TABLET (FP) PO ONE (10:22)
[2024-12-08] MEDS: POTASSIUM CHLORIDE TABS 20 MEQ TABLET.ER (FP) PO ONE (10:23)
[2024-12-08] MEDS: DIPHENOXYLATE 2.5/ATROPINE.025 1 COMBO TABLET PO PRN (12:14)
[2024-12-09 06:16] LABS: HEMATOCRIT 35.4 % (35.4-49); HEMOGLOBIN 11.5 GM/dL (11.7-16.9); MCH 29.2 pg (25.7-33.7); MCHC 32.5 g/dl (32.0-35.9); PLATELET COUNT 119 10^3/uL (134-434); RBC 3.94 M/mm3 (4.00-5.60); RDW 19.5 % (11.9-15.9)
[2024-12-09 06:58] LABS: POTASSIUM 3.1 mmol/L (3.5-5.1)
[2024-12-09 06:59] LABS: CALCIUM 8.6 mg/dL (8.5-10.1)
[2024-12-09 07:00] LABS: ALBUMIN 2.8 g/dl (3.4-5.0); BLOOD UREA NITROGEN 8.9 mg/dL (7-18); MAGNESIUM 1.7 mg/dL (1.8-2.4)
[2024-12-09 07:03] LABS: CREATININE 1.4 mg/dL (0.55-1.3)
[2024-12-09 07:05] LABS: BILIRUBIN,TOTAL 0.3 mg/dL (0.2-1); TOT PROT 6.5 g/dl (6.4-8.2)
[2024-12-09 08:27] LABS: WHITE BLOOD COUNT 1.7 K/mm3 (4.0-10.0)
[2024-12-09 11:09] LABS: ANISOCYTOSIS 1+; MACROCYTOSIS 1+
[2024-12-09] MEDS: POTASSIUM CHLORIDE TABS 20 MEQ TABLET.ER (FP) PO SCH (12:20)
[2024-12-09] MEDS: MAGNESIUM SULFATE IN WATER 2 GM/50 ML IVPB IVPB ONE (12:20)
[2024-12-10 08:45] LABS: HEMATOCRIT 30.1 % (35.4-49); HEMOGLOBIN 9.8 GM/dL (11.7-16.9); MCH 29.3 pg (25.7-33.7); MCHC 32.4 g/dl (32.0-35.9); MEAN CELL VOLUME 90.5 fl (80-96); MEAN PLT VOLUME 8.3 fl (7.5-11.1); PLATELET COUNT 128 10^3/uL (134-434); RBC 3.33 M/mm3 (4.00-5.60); RDW 19.6 % (11.9-15.9)
[2024-12-10 09:07] LABS: ALBUMIN 2.7 g/dl (3.4-5.0)
[2024-12-10 09:08] LABS: BLOOD UREA NITROGEN 6.4 mg/dL (7-18); CALCIUM 8.6 mg/dL (8.5-10.1); MAGNESIUM 2.2 mg/dL (1.8-2.4)
[2024-12-10 09:11] LABS: BILIRUBIN,TOTAL 0.2 mg/dL (0.2-1)
[2024-12-10 09:14] LABS: CREATININE 1.3 mg/dL (0.55-1.3)
[2024-12-10 09:20] LABS: TOT PROT 6.2 g/dl (6.4-8.2)
[2024-12-10 09:28] LABS: ANISOCYTOSIS 0; MACROCYTOSIS 0
[2024-12-10 09:34] LABS: PLATELET ESTIMATE SLT DECREASE
[2024-12-11] MEDS: PORTA CATH FLUSH 10 ML IVPUSH PRN (06:15)
[2024-12-11 09:53] LABS: HEMATOCRIT 29.7 % (35.4-49); HEMOGLOBIN 9.7 GM/dL (11.7-16.9); MCH 29.4 pg (25.7-33.7); MCHC 32.6 g/dl (32.0-35.9); MEAN CELL VOLUME 90.2 fl (80-96); MEAN PLT VOLUME 7.8 fl (7.5-11.1); PLATELET COUNT 131 10^3/uL (134-434); RBC 3.29 M/mm3 (4.00-5.60); RDW 19.9 % (11.9-15.9); WHITE BLOOD COUNT 2.3 K/mm3 (4.0-10.0)
[2024-12-11 11:28] LABS: ALBUMIN 2.8 g/dl (3.4-5.0); BILIRUBIN,TOTAL 0.2 mg/dL (0.2-1); BLOOD UREA NITROGEN 5.7 mg/dL (7-18); CALCIUM 8.7 mg/dL (8.5-10.1); CREATININE 1.2 mg/dL (0.55-1.3); POTASSIUM 3.5 mmol/L (3.5-5.1); TOT PROT 6.3 g/dl (6.4-8.2)
[2024-12-11 11:30] LABS: ANISOCYTOSIS 2+; MACROCYTOSIS 1+
[2024-12-11] MEDS: PATIENT'S OWN MEDICATION (NON-FORMULARY) (Olopatadine Hcl [Olopatadine Hcl] 2.5 ML Drops) OU SCH (13:39)
[2024-12-11] MEDS: DIPHENOXYLATE 2.5/ATROPINE.025 1 COMBO TABLET PO PRN (21:58)
[2024-12-12 12:27] LABS: BASO % 0.7 % (0-2.0); EOS % 1.7 % (0-4.5); HEMATOCRIT 28.8 % (35.4-49); HEMOGLOBIN 9.6 GM/dL (11.7-16.9); LYMPH % 24.7 % (8-40); MCH 29.7 pg (25.7-33.7); MCHC 33.3 g/dl (32.0-35.9); MEAN CELL VOLUME 89.4 fl (80-96); MEAN PLT VOLUME 7.9 fl (7.5-11.1); MONO % 18.2 % (3.8-10.2); NEUT % 54.7 % (42.8-82.8); PLATELET COUNT 139 10^3/uL (134-434); RBC 3.23 M/mm3 (4.00-5.60); RDW 19.9 % (11.9-15.9); WHITE BLOOD COUNT 2.1 K/mm3 (4.0-10.0)
[2024-12-12 12:49] LABS: POTASSIUM 3.6 mmol/L (3.5-5.1)
[2024-12-12 12:52] LABS: ALBUMIN 2.7 g/dl (3.4-5.0); BLOOD UREA NITROGEN 5.8 mg/dL (7-18); CALCIUM 8.7 mg/dL (8.5-10.1)
[2024-12-12 12:56] LABS: CREATININE 1.1 mg/dL (0.55-1.3)
[2024-12-12 12:57] LABS: BILIRUBIN,TOTAL 0.2 mg/dL (0.2-1); TOT PROT 6.4 g/dl (6.4-8.2)
[2024-12-13 10:53] LABS: BASO % 1.5 % (0-2.0); EOS % 1.6 % (0-4.5); HEMATOCRIT 30.6 % (35.4-49); HEMOGLOBIN 10.2 GM/dL (11.7-16.9); LYMPH % 29.3 % (8-40); MCH 29.7 pg (25.7-33.7); MCHC 33.4 g/dl (32.0-35.9); MEAN PLT VOLUME 8.6 fl (7.5-11.1); MONO % 14.3 % (3.8-10.2); NEUT % 53.3 % (42.8-82.8); PLATELET COUNT 165 10^3/uL (134-434); RBC 3.43 M/mm3 (4.00-5.60); RDW 19.6 % (11.9-15.9); WHITE BLOOD COUNT 2.2 K/mm3 (4.0-10.0)
[2024-12-13 11:13] LABS: POTASSIUM 3.4 mmol/L (3.5-5.1)
[2024-12-13 11:32] LABS: BILIRUBIN,TOTAL 0.2 mg/dL (0.2-1); TOT PROT 6.7 g/dl (6.4-8.2)
[2024-12-13 11:59] LABS: ALBUMIN 2.9 g/dl (3.4-5.0); BLOOD UREA NITROGEN 7.6 mg/dL (7-18); MAGNESIUM 1.9 mg/dL (1.8-2.4)
[2024-12-13 12:02] LABS: CREATININE 1.1 mg/dL (0.55-1.3)
[2024-12-13 14:30] VITALS: BP 111/70; PULSE 71; RESP 18; TEMP 98.4
[2024-12-13] MEDS: POTASSIUM CHLORIDE TABS 20 MEQ TABLET.ER (FP) PO ONE (14:40)
[2024-12-13] MEDS: PORTA CATH FLUSH 10 ML IVPUSH PRN (14:46)
== END 2024-12-13 15:34 | DRG 872 ==
LOC: JER 09:43 → JERBED 17:27 → J8W 23:32
PROVIDERS: ADMIT Internal Medicine; ATTEND Nurse Practitioner Acute Care
DX: A41.9 Sepsis, unspecified organism (principal); C20 Malignant neoplasm of rectum; B19.10 Unspecified viral hepatitis B without hepatic coma; I10 Essential (primary) hypertension; E78.5 Hyperlipidemia, unspecified; D70.9 Neutropenia, unspecified; R19.7 Diarrhea, unspecified; I12.9 Hypertensive chronic kidney disease with stage 1 through stage 4 chronic kidney disease, or unspecified chronic kidney disease; N18.30 Chronic kidney disease, stage 3 unspecified
CPT/HCPCS: 0241U-QW; 36415; 71045-TC-FY; 74177-TC; 80048; 80053; 81003; 82803; 83605; 83690; 83735; 84484; 85025; 85610; 85730; 86140; 86850; 86900; 86901; 87040; 87086; 87324; 87449; 87493; 87635; 93005; 93010; 93306-TC; 97116-GP; 97161-GP; 99285-25; J0131; J1644; Q9967

== ENCOUNTER 2025-01-04 09:18 | Day surgery (SDC) | payer OTHER ==
[2025-01-04] MEDS: SODIUM CHLORIDE 250 ML IV ONE (09:47)
[2025-01-04 09:57] LABS: BASO % 0.8 % (0-2.0); EOS % 0.5 % (0-4.5); HEMOGLOBIN 10.9 GM/dL (11.7-16.9); LYMPH % 19.2 % (8-40); MCH 31.8 pg (25.7-33.7); MCHC 34.1 g/dl (32.0-35.9); MEAN CELL VOLUME 93.1 fl (80-96); MEAN PLT VOLUME 7.9 fl (7.5-11.1); MONO % 17.1 % (3.8-10.2); NEUT % 62.4 % (42.8-82.8); PLATELET COUNT 153 10^3/uL (134-434); RBC 3.44 M/mm3 (4.00-5.60); RDW 20.2 % (11.9-15.9); WHITE BLOOD COUNT 2.1 K/mm3 (4.0-10.0)
[2025-01-04 10:29] LABS: POTASSIUM 3.7 mmol/L (3.5-5.1)
[2025-01-04 10:33] LABS: ALBUMIN 3.3 g/dl (3.4-5.0); BLOOD UREA NITROGEN 8.3 mg/dL (7-18); CALCIUM 10.1 mg/dL (8.5-10.1)
[2025-01-04 10:35] LABS: MAGNESIUM 1.7 mg/dL (1.8-2.4)
[2025-01-04 10:37] LABS: CREATININE 1.1 mg/dL (0.55-1.3)
[2025-01-04 10:39] LABS: BILIRUBIN,TOTAL 0.5 mg/dL (0.2-1); TOT PROT 7.2 g/dl (6.4-8.2)
[2025-01-04] MEDS: PALONOSETRON HCL 0.25 MG/5 ML VIAL IVPUSH ONE (11:11)
[2025-01-04] MEDS: DEXAMETHASONE SODIUM PHOSPHATE 10 MG, DIPHENHYDRAMINE 25 MG in SODIUM CHLORIDE 100 ML IVPB ONE (11:12)
[2025-01-04] MEDS: LEUCOVORIN INJECTION - 684 MG in DEXTROSE 5%-WATER - 250 ML IVPB ONE (12:40)
[2025-01-04] MEDS: FLUOROURACIL 4,100 MG in SODIUM CHLORIDE 10 ML CP ONE (15:00)
[2025-01-04 17:35] VITALS: RESP 20; TEMP 98.6
[2025-01-04 17:47] VITALS: BP 187/93; PULSE 89
== END 2025-01-04 15:35 | disposition home or self-care (01) ==
LOC: JONCCHEMO 09:18 → J7W 09:22 → JONCCHEMO 15:35
PROVIDERS: ATTEND Internal Medicine Hematology & Oncology
DX: Z51.11 Encounter for antineoplastic chemotherapy (principal); C20 Malignant neoplasm of rectum
CPT/HCPCS: 36415; 80053; 83735; 85025; 96366; 96367; 96375; 96413; 96415; G0498; J9263

== ENCOUNTER 2025-01-06 10:26 | Day surgery (SDC) | payer OTHER ==
[2025-01-06] MEDS: POTASSIUM CHLORIDE 20 MEQ, MAGNESIUM SULFATE 2 GM in SODIUM CHLORIDE 500 ML IV ONE (11:50)
[2025-01-06] MEDS: PORTA CATH FLUSH 10 ML IVPUSH PRN (14:15)
[2025-01-06 18:01] VITALS: RESP 18; TEMP 98.2
[2025-01-06 18:09] VITALS: BP 126/65; PULSE 73
== END 2025-01-06 14:10 | disposition home or self-care (01) ==
LOC: JONCCHEMO 10:26 → J7W 10:47 → JONCCHEMO 14:10
PROVIDERS: ATTEND Internal Medicine Hematology & Oncology
PROC: 3E0437Z Introduction of Electrolytic and Water Balance Substance into Central Vein, Percutaneous Approach (ICD-10-PCS; principal; 2025-01-06)
DX: C20 Malignant neoplasm of rectum (principal); Z76.89 Persons encountering health services in other specified circumstances
CPT/HCPCS: 96360; 96361

== ENCOUNTER 2025-01-07 11:30 | Day surgery (SDC) | payer OTHER ==
[2025-01-07] MEDS: TBO-FILGRASTIM 300 MCG/0.5 ML DISP.SYRINGE SQ ONE (12:10)
[2025-01-07 15:23] VITALS: BP 111/63; PULSE 93; RESP 16; TEMP 98.4
== END 2025-01-07 12:30 | disposition home or self-care (01) ==
LOC: JONCCHEMO 11:30 → J7W 11:43 → JONCCHEMO 12:30
PROVIDERS: ATTEND Internal Medicine Hematology & Oncology
PROC: 3E013GC Introduction of Other Therapeutic Substance into Subcutaneous Tissue, Percutaneous Approach (ICD-10-PCS; principal; 2025-01-07)
DX: C20 Malignant neoplasm of rectum (principal); Z76.89 Persons encountering health services in other specified circumstances
CPT/HCPCS: 96372; J1447

== ENCOUNTER 2025-01-13 08:56 | Inpatient (IN) | payer OTHER ==
[2025-01-13] MEDS ORDERED: ACETAMINOPHEN INJECTION 100 ML ONE ×2 (09:57→19:54)
[2025-01-13] MEDS: ACETAMINOPHEN 1000 MG/100 ML BAG IVPB ONE ×2 (10:15→19:53)
[2025-01-13 10:58] LABS: VENOUS BASE EXCESS -0.1 mmol/L (-2-2); VENOUS O2 SATURATION 72.4 % (70-80); VENOUS PCO2 42.4 mmHg (38-52); VENOUS PH 7.387 (7.310-7.410)
[2025-01-13 11:00] LABS: HEMATOCRIT 32.3 % (35.4-49); HEMOGLOBIN 10.9 GM/dL (11.7-16.9); MCH 31.4 pg (25.7-33.7); MCHC 33.6 g/dl (32.0-35.9); MEAN CELL VOLUME 93.5 fl (80-96); MEAN PLT VOLUME 8.8 fl (7.5-11.1); PLATELET COUNT 159 10^3/uL (134-434); RBC 3.46 M/mm3 (4.00-5.60); RDW 18.9 % (11.9-15.9); WHITE BLOOD COUNT 3.1 K/mm3 (4.0-10.0)
[2025-01-13 11:06] LABS: INR 1.2 (0.83-1.09); PROTHROMBIN TIME (PATIENT) 13.1 SEC (9.7-13.0)
[2025-01-13 11:09] LABS: ACTIVATED PTT 38.2 SECONDS (25.2-36.5)
[2025-01-13 11:43] LABS: LACTIC ACID 2.1 mmol/L (0.4-2.0)
[2025-01-13 12:00] LABS: ANISOCYTOSIS 0; MACROCYTOSIS 0
[2025-01-13] MEDS: LACTATED RINGERS SOLUTION 1000 ML INFUS.BAG IV ONE (12:04)
[2025-01-13 12:25] LABS: POTASSIUM 4.1 mmol/L (3.5-5.1)
[2025-01-13 12:27] LABS: CALCIUM 9.5 mg/dL (8.5-10.1)
[2025-01-13 12:28] LABS: ALBUMIN 3.2 g/dl (3.4-5.0); BLOOD UREA NITROGEN 7.5 mg/dL (7-18); MAGNESIUM 1.8 mg/dL (1.8-2.4)
[2025-01-13 12:32] LABS: BILIRUBIN,TOTAL 0.5 mg/dL (0.2-1); TOT PROT 7.1 g/dl (6.4-8.2)
[2025-01-13 12:33] LABS: EPI CELLS 17 /uL (0-25.1); HYALINE CASTS 1 /uL (0-3.1); URINE APPEARANCE CLEAR; URINE BACTERIA 58 /uL (0-1359); URINE BILIRUBIN NEGATIVE (NEGATIVE); URINE COLOR YELLOW; URINE GLUCOSE (UA) NEGATIVE (NEGATIVE); URINE KETONE NEGATIVE (NEGATIVE); URINE LEUK ESTERASE TRACE (NEGATIVE); URINE NITRITE NEGATIVE (NEGATIVE); URINE PROTEIN 3+ (NEGATIVE); URINE RBC 40 /uL (0-23.9); URINE UROBILINOGEN 0.2 mg/dL (0.2-1.0); URINE WBC 96 /uL (0-25.8)
[2025-01-13] MEDS ORDERED: ONDANSETRON 4 MG/2 ML VIAL ONE (15:07)
[2025-01-13] MEDS: ONDANSETRON 4 MG/2 ML VIAL IVPUSH ONE (15:10)
[2025-01-13] MEDS ORDERED: DEXTROSE 5%-0.45% SALINE 1,000 ML IV SCH (21:30)
[2025-01-13] MEDS ORDERED: ONDANSETRON 4 MG/2 ML VIAL IVPUSH PRN (21:35)
[2025-01-13] MEDS: KETOROLAC TROMETHAMINE 15 MG/ML VIAL IVPUSH ONE (21:54)
[2025-01-13] MEDS: DEXTROSE 5%-0.45% SALINE 1,000 ML IV SCH (21:55)
[2025-01-13 22:21] VITALS: BMI 24.0
[2025-01-14] MEDS: ACETAMINOPHEN 1000 MG/100 ML BAG IVPB PRN (08:34)
[2025-01-14] MEDS: ENOXAPARIN NA (PORCINE) 40 MG/0.4 ML DISP.SYRIN SQ SCH (09:08)
[2025-01-14 11:16] LABS: HEMOGLOBIN 11.7 GM/dL (11.7-16.9); MCH 31.7 pg (25.7-33.7); MCHC 34.4 g/dl (32.0-35.9); MEAN CELL VOLUME 92.3 fl (80-96); PLATELET COUNT 184 10^3/uL (134-434); RBC 3.68 M/mm3 (4.00-5.60); RDW 19.3 % (11.9-15.9); WHITE BLOOD COUNT 2.5 K/mm3 (4.0-10.0)
[2025-01-14 11:17] LABS: MEAN PLT VOLUME 8.3 fl (7.5-11.1)
[2025-01-14 11:36] LABS: CALCIUM 9.2 mg/dL (8.5-10.1); POTASSIUM 3.9 mmol/L (3.5-5.1)
[2025-01-14 11:37] LABS: BLOOD UREA NITROGEN 11.2 mg/dL (7-18)
[2025-01-14 11:41] LABS: CREATININE 1.2 mg/dL (0.55-1.3)
[2025-01-14 12:12] LABS: ANISOCYTOSIS 1+; MACROCYTOSIS 1+
[2025-01-14] MEDS ORDERED: ONDANSETRON 4 MG/2 ML VIAL IVPUSH PRN (12:12)
[2025-01-14] MEDS: IOHEXOL (OMNIPAQUE IV) 350 MG/ML - 100 ML BOTTLE PO SCH (12:15)
[2025-01-14] MEDS: D5-1/2NS+10 MEQ KCL - 10 MEQ/1,000 ML INFUS.BAG IV SCH (12:16)
[2025-01-14] MEDS: FAMOTIDINE 20 MG/50 ML IVPB 20 MG/50 ML MG IVPB SCH (12:17)
[2025-01-14] MEDS: INSULIN ASPART SLIDING SCALE (NOVOLOG) 1 VIAL SQ SCH (13:30)
[2025-01-14] MEDS: ATORVASTATIN CA 10 MG TABLET (FP) PO SCH (21:24)
[2025-01-14] MEDS: ARTIFICIAL TEARS OPHTHALMIC DROPS OU SCH (21:25)
[2025-01-15] MEDS: TAMSULOSIN HCL 0.4 MG CAP PO SCH (09:30)
[2025-01-15] MEDS: ENTECAVIR 0.5 MG TABLET PO SCH (09:30)
[2025-01-16 10:21] LABS: BASO % 0.2 % (0-2.0); EOS % 0.2 % (0-4.5); HEMATOCRIT 31.6 % (35.4-49); HEMOGLOBIN 10.6 GM/dL (11.7-16.9); LYMPH % 10.6 % (8-40); MCH 31.7 pg (25.7-33.7); MCHC 33.7 g/dl (32.0-35.9); MEAN CELL VOLUME 93.9 fl (80-96); MEAN PLT VOLUME 8.3 fl (7.5-11.1); MONO % 19.6 % (3.8-10.2); NEUT % 69.4 % (42.8-82.8); PLATELET COUNT 145 10^3/uL (134-434); RBC 3.36 M/mm3 (4.00-5.60); RDW 19.1 % (11.9-15.9); WHITE BLOOD COUNT 4.1 K/mm3 (4.0-10.0)
[2025-01-16 10:31] LABS: POTASSIUM 3.6 mmol/L (3.5-5.1)
[2025-01-16 10:33] LABS: ALBUMIN 2.6 g/dl (3.4-5.0); BLOOD UREA NITROGEN 9.2 mg/dL (7-18); CALCIUM 8.7 mg/dL (8.5-10.1); MAGNESIUM 1.7 mg/dL (1.8-2.4)
[2025-01-16 10:36] LABS: CREATININE 1.2 mg/dL (0.55-1.3)
[2025-01-16 10:38] LABS: BILIRUBIN,TOTAL 0.4 mg/dL (0.2-1); TOT PROT 6.1 g/dl (6.4-8.2)
[2025-01-16] MEDS: MAGNESIUM 1GM/D5W 100ML - 100 ML IVPB IVPB ONE (12:55)
[2025-01-16] MEDS: ACETAMINOPHEN 325 MG TABLET (FP) PO PRN (17:05)
[2025-01-17 09:01] LABS: HEMATOCRIT 36.5 % (35.4-49); HEMOGLOBIN 12.2 GM/dL (11.7-16.9); MCH 31.4 pg (25.7-33.7); MCHC 33.3 g/dl (32.0-35.9); MEAN CELL VOLUME 94.2 fl (80-96); MEAN PLT VOLUME 8.3 fl (7.5-11.1); PLATELET COUNT 175 10^3/uL (134-434); RBC 3.87 M/mm3 (4.00-5.60); RDW 18.9 % (11.9-15.9); WHITE BLOOD COUNT 3.7 K/mm3 (4.0-10.0)
[2025-01-17 09:19] LABS: POTASSIUM 3.9 mmol/L (3.5-5.1)
[2025-01-17 09:24] LABS: CALCIUM 9.2 mg/dL (8.5-10.1)
[2025-01-17 09:26] LABS: ALBUMIN 3.1 g/dl (3.4-5.0); BLOOD UREA NITROGEN 9.8 mg/dL (7-18)
[2025-01-17 09:27] LABS: CREATININE 1.1 mg/dL (0.55-1.3)
[2025-01-17 09:28] LABS: BILIRUBIN,TOTAL 0.4 mg/dL (0.2-1)
[2025-01-17 09:29] LABS: TOT PROT 7.3 g/dl (6.4-8.2)
[2025-01-17 10:15] LABS: BASO % 0.2 % (0-2.0); EOS % 0.1 % (0-4.5); LYMPH % 6.9 % (8-40); MONO % 15.1 % (3.8-10.2); NEUT % 77.7 % (42.8-82.8)
[2025-01-17] MEDS: INSULIN ASPART SLIDING SCALE (NOVOLOG) 1 VIAL SQ SCH (17:28)
[2025-01-18 12:34] LABS: BASO % 0.1 % (0-2.0); EOS % 0.1 % (0-4.5); HEMATOCRIT 34.5 % (35.4-49); HEMOGLOBIN 11.7 GM/dL (11.7-16.9); LYMPH % 8.2 % (8-40); MCH 31.5 pg (25.7-33.7); MCHC 33.9 g/dl (32.0-35.9); MEAN CELL VOLUME 92.9 fl (80-96); MEAN PLT VOLUME 7.7 fl (7.5-11.1); MONO % 19.2 % (3.8-10.2); NEUT % 72.4 % (42.8-82.8); PLATELET COUNT 204 10^3/uL (134-434); RBC 3.72 M/mm3 (4.00-5.60); RDW 18.7 % (11.9-15.9); WHITE BLOOD COUNT 4.7 K/mm3 (4.0-10.0)
[2025-01-18 12:56] LABS: POTASSIUM 3.6 mmol/L (3.5-5.1)
[2025-01-18 12:58] LABS: ALBUMIN 2.8 g/dl (3.4-5.0)
[2025-01-18 12:59] LABS: BLOOD UREA NITROGEN 12.3 mg/dL (7-18)
[2025-01-18 13:02] LABS: CREATININE 1.1 mg/dL (0.55-1.3)
[2025-01-18 13:03] LABS: BILIRUBIN,TOTAL 0.3 mg/dL (0.2-1); TOT PROT 6.8 g/dl (6.4-8.2)
[2025-01-19 10:02] LABS: HEMATOCRIT 36.8 % (35.4-49); HEMOGLOBIN 11.9 GM/dL (11.7-16.9); MCH 30.6 pg (25.7-33.7); MCHC 32.2 g/dl (32.0-35.9); MEAN PLT VOLUME 8.5 fl (7.5-11.1); PLATELET COUNT 234 10^3/uL (134-434); RBC 3.88 M/mm3 (4.00-5.60); WHITE BLOOD COUNT 5.4 K/mm3 (4.0-10.0)
[2025-01-19 10:25] LABS: POTASSIUM 3.6 mmol/L (3.5-5.1)
[2025-01-19 10:39] LABS: BLOOD UREA NITROGEN 16.5 mg/dL (7-18); CALCIUM 9.3 mg/dL (8.5-10.1)
[2025-01-19 10:40] LABS: MAGNESIUM 2.2 mg/dL (1.8-2.4)
[2025-01-19 10:43] LABS: PHOSPHOROUS 3.4 mg/dL (2.5-4.9)
[2025-01-19 14:43] VITALS: RESP 18
[2025-01-20 09:42] LABS: HEMATOCRIT 35.3 % (35.4-49); HEMOGLOBIN 11.5 GM/dL (11.7-16.9); MCHC 32.5 g/dl (32.0-35.9); MEAN CELL VOLUME 95.4 fl (80-96); MEAN PLT VOLUME 7.9 fl (7.5-11.1); PLATELET COUNT 250 10^3/uL (134-434); RDW 18.9 % (11.9-15.9); WHITE BLOOD COUNT 3.9 K/mm3 (4.0-10.0)
[2025-01-20 09:52] LABS: POTASSIUM 3.8 mmol/L (3.5-5.1)
[2025-01-20 09:54] LABS: CALCIUM 9.3 mg/dL (8.5-10.1)
[2025-01-20 09:55] LABS: ALBUMIN 2.9 g/dl (3.4-5.0); MAGNESIUM 2.1 mg/dL (1.8-2.4)
[2025-01-20 09:58] LABS: CREATININE 1.1 mg/dL (0.55-1.3); PHOSPHOROUS 2.9 mg/dL (2.5-4.9)
[2025-01-20 09:59] LABS: BILIRUBIN,TOTAL 0.3 mg/dL (0.2-1); TOT PROT 6.6 g/dl (6.4-8.2)
[2025-01-20 10:45] LABS: ANISOCYTOSIS 0; MACROCYTOSIS 0
[2025-01-20 13:52] VITALS: BP 132/83; PULSE 93; TEMP 98.6
== END 2025-01-20 21:58 | DRG 388 ==
LOC: JER 08:56 → JERBED 17:41 → J6S 20:16
PROVIDERS: ADMIT Internal Medicine; ATTEND Internal Medicine
DX: K56.609 Unspecified intestinal obstruction, unspecified as to partial versus complete obstruction (principal); U07.1 COVID-19; C20 Malignant neoplasm of rectum; B19.10 Unspecified viral hepatitis B without hepatic coma; E11.9 Type 2 diabetes mellitus without complications; I10 Essential (primary) hypertension; E78.5 Hyperlipidemia, unspecified
CPT/HCPCS: 36415; 71045-TC-FY; 74018-TC-FY; 74019-TC-FY; 74177-TC; 80048; 80053; 81003; 82803; 82962; 83605; 83690; 83735; 84100; 85025; 85610; 85730; 86850; 86900; 86901; 87086; 87635; 94010; 97116-GP; 97162-GP; 99285-25; J0131

== ENCOUNTER 2025-02-07 11:19 | Day surgery (SDC) | payer OTHER ==
[2025-02-07] MEDS: SODIUM CHLORIDE 250 ML IV ONE (11:45)
[2025-02-07 12:01] LABS: ABSOLUTE IMMATURE GRANULOCYTES 0.01 x10^3/uL (0.0-0.031); BASOPHILS # 0.03 x10^3/uL (0.01-0.08); EOSINOPHIL % 0.4 % (0.8-7.0); EOSINOPHILS # 0.02 x10^3/uL (0.04-0.54); HEMATOCRIT 35.4 % (40.1-51.0); HEMOGLOBIN 11.3 g/dL (13.7-17.5); MCHC 31.9 g/dl (32.3-36.5); MEAN CELL VOLUME 96.7 fl (79.0-92.2); MEAN PLT VOLUME 10.3 fl (9.4-12.4); MONOCYTE # 0.52 x10^3/uL (0.30-0.82); MONOCYTE % 11.6 % (5.3-12.2); PLATELET COUNT 211 x10^3/uL (163-337); RDW 15.7 % (12.2-16.6)
[2025-02-07 12:26] LABS: CHLORIDE 109 mmol/L (98-107); POTASSIUM 3.6 mmol/L (3.5-5.1); SODIUM 140 mmol/L (136-145)
[2025-02-07 12:28] LABS: CALCIUM 9.4 mg/dL (8.5-10.1)
[2025-02-07 12:29] LABS: ALBUMIN 3.4 g/dl (3.4-5.0); ANION GAP 9 mmol/L (4-13); BLOOD UREA NITROGEN 9.1 mg/dL (7-18); CO2 21 mmol/L (21-32); GLUCOSE,RANDOM 76 mg/dL (74-106); MAGNESIUM 1.8 mg/dL (1.8-2.4)
[2025-02-07 12:31] LABS: CREATININE 1.1 mg/dL (0.55-1.3); IRON SERUM 50 ug/dL (50-175)
[2025-02-07 12:32] LABS: SGOT/AST 26 U/L (15-37); SGPT/ALT 19 U/L (13-61); TOTAL IRON BINDING CAPACITY 231 ug/dL (250-450)
[2025-02-07 12:33] LABS: ALK PHOS 72 U/L (45-117); BILIRUBIN,TOTAL 0.3 mg/dL (0.2-1); TOT PROT 7.4 g/dl (6.4-8.2)
[2025-02-07] MEDS: PALONOSETRON HCL 0.25 MG/5 ML VIAL IVPUSH ONE (12:46)
[2025-02-07] MEDS: DEXAMETHASONE SODIUM PHOSPHATE 10 MG, DIPHENHYDRAMINE 25 MG in SODIUM CHLORIDE 100 ML IVPB ONE (12:52)
[2025-02-07] MEDS: LEUCOVORIN INJECTION - 684 MG in DEXTROSE 5%-WATER - 250 ML IVPB ONE (13:50)
[2025-02-07 15:55] VITALS: BP 138/84; PULSE 86; RESP 20; TEMP 97.4
[2025-02-07] MEDS ORDERED: PORTA CATH FLUSH 10 ML IVPUSH PRN (16:02)
[2025-02-07] MEDS: FLUOROURACIL 4,100 MG in SODIUM CHLORIDE 10 ML CP ONE (16:07)
== END 2025-02-07 16:56 | disposition home or self-care (01) ==
LOC: JONCCHEMO 11:19 → J7W 11:21 → JONCCHEMO 16:56
PROVIDERS: ATTEND Internal Medicine Hematology & Oncology
PROC: 3E04305 Introduction of Other Antineoplastic into Central Vein, Percutaneous Approach (ICD-10-PCS; principal; 2025-02-07)
PROC: 3E043GC Introduction of Other Therapeutic Substance into Central Vein, Percutaneous Approach (ICD-10-PCS; 2025-02-07)
PROC: 3E043GC Introduction of Other Therapeutic Substance into Central Vein, Percutaneous Approach (ICD-10-PCS; 2025-02-07)
DX: Z51.11 Encounter for antineoplastic chemotherapy (principal); C20 Malignant neoplasm of rectum; C78.80 Secondary malignant neoplasm of unspecified digestive organ
CPT/HCPCS: 36415; 80053; 82378; 82728; 83540; 83550; 83735; 85025; 96368; 96375; 96413; 96415; G0498; J9263

== ENCOUNTER 2025-02-09 11:41 | Day surgery (SDC) | payer OTHER ==
[2025-02-09] MEDS: POTASSIUM CHLORIDE 20 MEQ, MAGNESIUM SULFATE 2 GM in SODIUM CHLORIDE 500 ML IV ONE (12:13)
[2025-02-09] MEDS: DIPHENOXYLATE 2.5/ATROPINE.025 1 COMBO TABLET PO ONE (15:33)
[2025-02-09] MEDS: PORTA CATH FLUSH 10 ML IVPUSH PRN (15:40)
[2025-02-09 18:49] VITALS: BP 123/77; PULSE 97; RESP 20; TEMP 97.7
== END 2025-02-09 15:40 | disposition home or self-care (01) ==
LOC: J7W 11:41 → JONCCHEMO 11:41
PROVIDERS: ATTEND Internal Medicine Hematology & Oncology
PROC: 3E043GC Introduction of Other Therapeutic Substance into Central Vein, Percutaneous Approach (ICD-10-PCS; principal; 2025-02-09)
DX: C20 Malignant neoplasm of rectum (principal); C78.80 Secondary malignant neoplasm of unspecified digestive organ; Z76.89 Persons encountering health services in other specified circumstances
CPT/HCPCS: 96365; 96368